=== PATIENT | female | born 1970 | race Caucasian/White ===

== ENCOUNTER → 2016-03-26 | Outpatient (CLI) | payer OTHER ==
[~2016-03-26] MED LIST: /LOR25TA PO; /PREG50CA PO; ASPI81TA85 PO; CETI5TAB2 PO; FLAX1000 PO; HYDR12.55 PO; IBUPPOW25 PO; LISI10TA4 PO; MULTTAB24 PO; NAPR500T2 PO; SOMA350T PO; TOPA25TA10 PO; VITA10006 PO; [UNRECOGNIZED DRUG - CODE] PO; primrose PO
--- NOTE | 2016-04-01 01:51 | ECWPNPC ---
PATIENT NAME: DAFNE LOVE : 1970 GENDER: FEMALE VISIT DATE: 03/26/2016 DISCHARGE DATE: 03/26/16 1221 VISIT LOCKED DATE TIME: PHYSICIAN: MILENA GREWAL RESOURCE: MILENA GREWAL REASON FOR APPOINTMENT 1. WC, BACK PAIN HISTORY OF PRESENT ILLNESS HISTORY OF PRESENT ILLNESS: PAIN THE PATIENT DESCRIBES THE PAIN... 45 YEAR OLD FEMALE PATIENT WITH HISTORY OF CHRONIC BACK PAIN. PATIENT DESCRIBES THE PAIN ACHING, BURNING, AND SHOOTING WITH A PAIN SCORE OF 3-4 AT THIS TIME. PATIENT WAS HURT IN A WORK RELATED INJURY IN 2008 WHEN SHE WAS MOVING GARBAGE WHILE WORKING AT [employer] AND HURT HER BACK. PATIENT HAS HAD A BACK SURGERY AND HAS TRIED ICE, HEAT, AND PHYSICAL THERAPY AND NONE HAVE GIVEN HER [facility] RELIEF. PATIENT IS CURRENTLY USING HYDROCODONE WHICH SHE STATES KEEPS HER MOBILE AND FUNCTIONAL AND AIDS IN PAIN RELIEF. PATIENT DENIES UNEXPLAINABLE WEIGHT LOSS, FEVER, CHILLS, NEW CHANGES ON HER URINARY OR BOWEL CONTROL. FALL RISK SCREENING: SCREENING :NO FALLS IN THE PAST YEAR CURRENT MEDICATIONS TAKING HYDROCHLOROTHIAZIDE 12.5 MG CAPSULE 1 CAPSULE ORALLY ONCE A DAY TAKING LISINOPRIL 20 MG TABLET 1 TABLET ORALLY ONCE A DAY TAKING SERTRALINE HCL 25 MG TABLET 1 TABLET ORALLY ONCE A DAY TAKING STOOL SOFTENER 100 MG CAPSULE 1 CAPSULE NEEDED ORALLY ONCE A DAY TAKING NORCO 10-325 MG TABLET 1 ORALLY Q4H PRN MDD6 NOT-TAKING NAPROXEN 500 MG TABLET 1 TABLET NEEDED ORALLY EVERY 12 HRS NOT-TAKING ASPIR-81 81 MG TABLET DELAYED RELEASE 1 TABLET ORALLY ONCE A DAY MEDICATION LIST REVIEWED AND RECONCILED WITH THE PATIENT PAST MEDICAL HISTORY HTN ANXIETY ALLERGIES LYRICA: INCREASED ANXIETY: ALLERGY SURGICAL HISTORY CSECTION 1988 PILONDEAL CYST 1988 SCAR TISSUE REMOVAL / FROM CSECTION AREA 1995 CRANIOTOMY 2010 BACK SURGURY 2010 FAMILY HISTORY NO FAMILY HISTORY DOCUMENTED. SOCIAL HISTORY GENERAL: TOBACCO USE ARE YOU A:NONSMOKER LEARNING BARRIERS / SPECIAL NEEDS ORIENTED TO PLAN OF CARE: PATIENT, PAIN MANAGEMENT PATIENT, ORIENTED TO PLAN OF CARE: PATIENT, PAIN MANAGEMENT PATIENT. NEW PATIENT PAIN DIARY TODAY'S VISITNOTES FROM 0-10, WHAT LEVEL IS YOUR PAIN TODAY?0 PAIN CLINIC PFS, CLERGY, PUBLIC HEALTH REFERRALS PFS REFERRAL NEEDED?NO CLERGY REFERRAL NEEDED?NO PUBLIC HEALTH REFERRAL NEEDED?NO WAS THE PROVIDER NOTIFIED OF ANY PERTINENT INFO?NO PFS REFERRAL NEEDED?NO CLERGY REFERRAL NEEDED?NO PUBLIC HEALTH REFERRAL NEEDED?NO WAS THE PROVIDER NOTIFIED OF ANY PERTINENT INFO?NO HOSPITALIZATION/MAJOR DIAGNOSTIC PROCEDURE SEE ABOVE REVIEW OF SYSTEMS CONSTITUTIONAL: ANY CHANGE IN YOUR MEDICAL CONDITION? NO . CHILLS NO . FEVER NO . INFECTION: DO YOU HAVE NEW INFECTIONS? NO . DO YOU HAVE HISTORY OF MRSA? NO . MUSCULOSKELETAL: ANY NEW PATTERNS OF PAIN OR NUMBNESS? NO . GASTROENTEROLOGY: ANY NEW CHANGE IN BOWEL CONTROL? NO . GENITOURINARY: ANY NEW CHANGE IN BLADDER CONTROL? NO . IS THERE A CHANCE YOU COULD BE ? NO . HEMATOLOGY/LYMPH: DO YOU TAKE ANY BLOOD THINNERS? (FOR EXAMPLE- COUMADIN, PLAVIX, AGGRENOX, PLATEL, PRADAXA, OR XARELTO) NO . WHEN WAS YOUR LAST DOSE? DATE: TIME: . NEUROLOGY: HAVE YOU FALLEN IN THE PAST 6 MONTHS? NO . ANY NEW EXTREMITY NUMBNESS OR WEAKNESS? NO . CARDIOLOGY: DO YOU HAVE A PACEMAKER OR DEFIBRILLATOR? NO . RESPIRATORY: HAVE YOU BEEN SICK IN THE PAST WEEK? YES COLD X 2WEEKS . FEVER NO . FLU LIKE SYMPTOMS? NO . COUGH YES, PRODUCTIVE RAISING CLEAR MUCUS . INTEGUMENTARY: DO YOU HAVE ANY RASHES OR OPEN SORES? NO . ALLERGIC/IMMUNO: ARE YOU ALLERGIC TO SHELLFISH OR IV DYE? NO . ANY NEW ALLERGIES? NO . PSYCHIATRIC: DO YOU HAVE THOUGHTS OF HURTING YOURSELF OR SOMEONE ELSE? NO . ARE YOU ABUSED, NEGLECTED, OR IN AN UNSAFE ENVIRONMENT? NO . ENDOCRINOLOGY: ARE YOU DIABETIC? NO . OTHER: DO YOU NEED ANY PRESCRIPTIONS? YES, NORCO . IF YES, PLEASE LIST: ____ . ANY NEW PROBLEMS WITH YOUR MEDICATIONS? NO . WHEN DID YOU LAST EAT? ____ . WHEN DID YOU LAST DRINK? ____ . WHAT DID YOU LAST DRINK? ____ . NAME OF PERSON DRIVING YOU HOME? ____ . DO YOU HAVE ANY OTHER QUESTIONS OR CONCERNS NO . REVIEWED BY: PROVIDER: MILENA GREWAL MD . VITAL SIGNS WT 168 LBS, HT 65 IN, BMI 27.95 INDEX, BP 150/83 MM HG, HR 98 /MIN, RR 16 /MIN, TEMP 98.4 F, OXYGEN SAT % 97, NA INITIALS TL 1113, REVIEWED BY: AD. EXAMINATION : PATIENT IS ALERT O X 3 AND COOPERATIVE. PATIENT LIMPING FROM LEFT LEFT. MRS. FONTANA IS ABLE TO FLEX HER BACK 80 DEGREES AND EXTEND IT 5 DEGREES WITH DISCOMFORT. TENDERNESS IN THE LOWER BACK AND PARASPINAL MUSCLE GROUP. MRI DONE ON 08/24/14 SHOWS A DISC HERNIATION AT L3-L4, POST LAMICEOMTY CHANGES AT L4-L5 AND L5-S1. ASSESSMENTS POST LAMINECTOMY SYNDROME - M96.1 (PRIMARY) CHRONIC PRESCRIPTION OPIATE USE - Z79.891 INTERVERTEBRAL DISC DISORDERS WITH RADICULOPATHY, LUMBAR REGION - M51.16 TREATMENT POST LAMINECTOMY SYNDROME REFILL NORCO TABLET, 10-325 MG, 1, ORALLY, Q4H PRN MDD6, 30 DAY(S), 180, REFILLS 0 NOTES: WE DISCUSSED SEVERAL ISSUES WITH MRS. LOVE'S PAIN MANAGEMENT CASE. AT THIS TIME THE PATIENT WILL CONTINUE WITH THE SAME MEDICATION REGIME BEFORE. PATIENT STATES THAT THE MEDICATIONS KEEP HER MOBILE AND FUNCTIONAL AND DECREASE HER CHRONIC PAIN. PATIENT DENIES ABUSE OF ANY MEDICATION , DENIES USE OF ILLEGAL SUBSTANCES, AND STATES SHE IS ONLY USING THE MEDICATION FOR PAIN MANAGEMENT. URINE TOXICOLOGY REPORT DONE ON 12/11/15 SHOWS CONSISTENT RESULTS WITH THE PATIENTS MEDICATION LIST. MRS. LOVE REPORTS THAT INJECTIONS DO NOT AID IN PAIN RELIEF AT THIS TIME. PATIENT WILL RETURN TO THE CLINIC IN 3 WEEKS TO FURTHER DISCUSS HER CASE. INSTRUCTIONS WERE GIVEN, QUESTIONS WERE ANSWERED, PATIENT REPORTS UNDERSTANDING AND AGREES WITH THE PLAN. I, NORMA FISHER, DOCUMENTED THE ABOVE INFORMATION ACTING A SCRIBE FOR DR. GREWAL. I HAVE REVIEWED THE ABOVE DOCUMENT, WRITTEN BY NORMA HUFF AND I VERIFY THAT IT IS ACCURATE. OTHERS REFILL STOOL SOFTENER CAPSULE, 100 MG, 1 CAPSULE NEEDED, ORALLY, ONCE A DAY FOR CONSTIPATION, 30 DAY(S), 30, REFILLS 2 START IBUPROFEN TABLET, 800 MG, 1 TABLET NEEDED FOR PAIN, ORALLY WITH FOOD, THREE TIMES A DAY MDD3, 30 DAY(S), 70, REFILLS 2 PROCEDURES PN WORKMANS' COMP OPINION IN YOUR OPINION, WAS THE INCIDENT THAT THE PATIENT DESCRIBED THE COMPETENT MEDICAL CAUSE OF THIS INJURY/ILLNESS? YES ARE THE PATIENT'S COMPLAINTS CONSISTENT WITH HIS/HER HISTORY OF THE INJURY/ILLNESS? YES IS THE PATIENT'S HISTORY OF THE INJURY/ILLNESS CONSISTENT WITH YOUR OBJECTIVE FINDING? YES WHAT IS THE PERCENTAGE OF TEMPORARY IMPAIRMENT? MODERATE TO MARKED = 66.7% IS THE PATIENT WORKING? NO DOCTOR ON SITE: MILENA SPEARS MD PREVENTIVE MEDICINE PAIN CLINIC TEACHING: MEDICATIONS IBUPROFAN INFORMATION SHEETS PRINTED AND GIVEN TO PATIENT. ALSO SIJ INFORMATION SHEET AND TRANSFORAMINAL LUMBAR EPIDURAL INFORMATION SHEETS GIVEN TO PATIENT. PROCEDURE CODES FA211 ESTABILISHED PATIENT [facility] FACILITY CHARGE G8427 DOC MEDS VERIFIED W/PT OR RE G8730 PAIN ASSESS POS TOOL F/U PLAN DOC FOLLOW UP 3 WEEKS ELECTRONICALLY SIGNED BY MILENA GREWAL MD ON 03/30/2016 AT 07:33 PM EST DISCLAIMER : THIS IS A VISIT SUMMARY EXTRACTED FROM THE [employer] CHART. IT IS NOT A COPY OF THE [email or web address] PROGRESS NOTE. NELSON
== END ==
LOC: M PAIN 11:00
PROVIDERS: ATTEND Anesthesiology
DX: Z09 Encounter for follow-up examination after completed treatment for conditions other than malignant neoplasm (principal); G89.29 Other chronic pain; M96.1 Postlaminectomy syndrome, not elsewhere classified; M51.16 Intervertebral disc disorders with radiculopathy, lumbar region; I10 Essential (primary) hypertension; F41.9 Anxiety disorder, unspecified; Z88.8 Allergy status to other drugs, medicaments and biological substances; Z79.891 Long term (current) use of opiate analgesic; Z79.899 Other long term (current) drug therapy

== ENCOUNTER → 2016-05-05 | Outpatient (CLI) | payer OTHER ==
--- NOTE | 2016-05-06 00:02 | ECWPNPC ---
PATIENT NAME: DAFNE LOVE : 1970 GENDER: FEMALE VISIT DATE: 05/05/2016 DISCHARGE DATE: 05/05/16 1441 VISIT LOCKED DATE TIME: PHYSICIAN: MILENA GREWAL RESOURCE: MILENA GREWAL REASON FOR APPOINTMENT 1. BACK W/C HISTORY OF PRESENT ILLNESS HISTORY OF PRESENT ILLNESS: PAIN THE PATIENT DESCRIBES THE PAIN... FALL RISK SCREENING: SCREENING :NO FALLS IN THE PAST YEAR GENERAL: 45 YEAR OLD FEMALE PATIENT WITH HISTORY OF CHRONIC BACK PAIN. PATIENT DESCRIBES THE PAIN . PATIENT WAS HURT IN A WORK RELATED INJURY IN 2008 WHEN SHE WAS MOVING GARBAGE WHILE WORKING AT [email or web address] AND HURT HER BACK. PATIENT HAD BACK SURGERY IN MAY OF 2009. PATIENT REPORTS THAT HER LEFT LEG HURTS THE MOST TODAY DUE TO RADIATING PAIN FROM HER BACK. PATIENT REPORTS SHE HAS HAD PHYSICAL THERAPY IN THE PAST, AND DID NOT HELP AT ALL AND SHE TRY'S TO KEEP HER SELF ACTIVE AND FUNCTIONAL AT HOME IF THE PAIN IS NOT TOO BAD. PATIENT STATES THAT SHE HAS TO BE CAREFUL WHEN SHE IS ACTIVE THE PAIN CAN BECOME SEVERE IF SHE DOES TOO MUCH. PATIENT REPORTS THAT SHE HAS DIFFICULTIES FALLING ASLEEP AND STAYING ASLEEP. PATIENT REPORTS THAT SHE IS ON THE FENCE ABOUT DOING INJECTIONS. PATIENT REPORTS THAT IBUPROFEN WORKS OKAY. PATIENT DENIES UNEXPLAINABLE WEIGHT LOSS, FEVER, CHILLS, NEW CHANGES ON HIS/HER URINARY OR BOWEL CONTROL. CURRENT MEDICATIONS TAKING HYDROCHLOROTHIAZIDE 12.5 MG CAPSULE 1 CAPSULE ORALLY ONCE A DAY TAKING LISINOPRIL 20 MG TABLET 1 TABLET ORALLY ONCE A DAY TAKING SERTRALINE HCL 25 MG TABLET 1 TABLET ORALLY ONCE A DAY TAKING STOOL SOFTENER 100 MG CAPSULE 1 CAPSULE NEEDED ORALLY ONCE A DAY FOR CONSTIPATION TAKING IBUPROFEN 800 MG TABLET 1 TABLET NEEDED FOR PAIN ORALLY WITH FOOD THREE TIMES A DAY MDD3 TAKING NORCO 10-325 MG TABLET 1 ORALLY Q4H PRN MDD6 NOT-TAKING NAPROXEN 500 MG TABLET 1 TABLET NEEDED ORALLY EVERY 12 HRS NOT-TAKING ASPIR-81 81 MG TABLET DELAYED RELEASE 1 TABLET ORALLY ONCE A DAY MEDICATION LIST REVIEWED AND RECONCILED WITH THE PATIENT PAST MEDICAL HISTORY HTN ANXIETY ALLERGIES LYRICA: INCREASED ANXIETY: ALLERGY SURGICAL HISTORY CSECTION 1988 PILONDEAL CYST 1988 SCAR TISSUE REMOVAL / FROM CSECTION AREA 1995 CRANIOTOMY 2010 BACK SURGURY 2010 FAMILY HISTORY NO FAMILY HISTORY DOCUMENTED. SOCIAL HISTORY GENERAL: TOBACCO USE ARE YOU A:NONSMOKER LEARNING BARRIERS / SPECIAL NEEDS ORIENTED TO PLAN OF CARE: PATIENT, PAIN MANAGEMENT PATIENT, ORIENTED TO PLAN OF CARE: PATIENT, PAIN MANAGEMENT PATIENT. NEW PATIENT PAIN DIARY TODAY'S VISITNOTES FROM 0-10, WHAT LEVEL IS YOUR PAIN TODAY?0 PAIN CLINIC PFS, CLERGY, PUBLIC HEALTH REFERRALS PFS REFERRAL NEEDED?NO CLERGY REFERRAL NEEDED?NO PUBLIC HEALTH REFERRAL NEEDED?NO WAS THE PROVIDER NOTIFIED OF ANY PERTINENT INFO?NO PFS REFERRAL NEEDED?NO CLERGY REFERRAL NEEDED?NO PUBLIC HEALTH REFERRAL NEEDED?NO WAS THE PROVIDER NOTIFIED OF ANY PERTINENT INFO?NO HOSPITALIZATION/MAJOR DIAGNOSTIC PROCEDURE SEE ABOVE REVIEW OF SYSTEMS CONSTITUTIONAL: ANY CHANGE IN YOUR MEDICAL CONDITION? YES BEEN BATTLING RESPIRATORY/ GOING TO SEE PRIMARY TOMORROW. ALSO HAS INCREASED SWELLING IN FEET AND ANKLES . CHILLS NO . FEVER NO . INFECTION: DO YOU HAVE NEW INFECTIONS? NO . DO YOU HAVE HISTORY OF MRSA? NO . MUSCULOSKELETAL: ANY NEW PATTERNS OF PAIN OR NUMBNESS? NO . GASTROENTEROLOGY: ANY NEW CHANGE IN BOWEL CONTROL? NO . GENITOURINARY: ANY NEW CHANGE IN BLADDER CONTROL? NO . IS THERE A CHANCE YOU COULD BE ? NO . HEMATOLOGY/LYMPH: DO YOU TAKE ANY BLOOD THINNERS? (FOR EXAMPLE- COUMADIN, PLAVIX, AGGRENOX, PLATEL, PRADAXA, OR XARELTO) NO . WHEN WAS YOUR LAST DOSE? DATE: TIME: . NEUROLOGY: HAVE YOU FALLEN IN THE PAST 6 MONTHS? NO . ANY NEW EXTREMITY NUMBNESS OR WEAKNESS? NO . CARDIOLOGY: DO YOU HAVE A PACEMAKER OR DEFIBRILLATOR? NO . RESPIRATORY: HAVE YOU BEEN SICK IN THE PAST WEEK? NO . FEVER NO . FLU LIKE SYMPTOMS? NO . COUGH NO . INTEGUMENTARY: DO YOU HAVE ANY RASHES OR OPEN SORES? NO . ALLERGIC/IMMUNO: ARE YOU ALLERGIC TO SHELLFISH OR IV DYE? NO . ANY NEW ALLERGIES? NO . PSYCHIATRIC: DO YOU HAVE THOUGHTS OF HURTING YOURSELF OR SOMEONE ELSE? NO . ARE YOU ABUSED, NEGLECTED, OR IN AN UNSAFE ENVIRONMENT? NO . ENDOCRINOLOGY: ARE YOU DIABETIC? NO . OTHER: DO YOU NEED ANY PRESCRIPTIONS? NO . IF YES, PLEASE LIST: ____ . ANY NEW PROBLEMS WITH YOUR MEDICATIONS? NO . WHEN DID YOU LAST EAT? ____ . WHEN DID YOU LAST DRINK? ____ . WHAT DID YOU LAST DRINK? ____ . NAME OF PERSON DRIVING YOU HOME? ____ . DO YOU HAVE ANY OTHER QUESTIONS OR CONCERNS NO . REVIEWED BY: PROVIDER: MILENA GREWAL MD . VITAL SIGNS WT 179.2 LBS, HT 65 IN, BMI 29.82 INDEX, BP 146/84 MM HG, HR 101 /MIN, RR 18 /MIN, TEMP 100.4 F, OXYGEN SAT % 99%, REVIEWED BY: KG. EXAMINATION GENERAL: PATIENT IS ALERT O X 3 AND COOPERATIVE. PATIENT AMBULATES WITH A LIMP ON THE LEFT LEG. PATIENT'S LEFT LEG IS WEAKER AT FLEXION AND EXTENSION. PATIENT IS ABLE TO FLEX HER BACK TO 45 DEGREES AND EXTEND TO 10 DEGREES. THERE IS TENDERNESS IN THE SACROILIAC AREA. MRI DONE ON 08/24/14 SHOWS A DISC HERNIATION AT L3-L4, POST LAMINECTOMY CHANGES AT L4-L5 AND L5-S1. ASSESSMENTS SACROILIITIS, NOT ELSEWHERE CLASSIFIED - M46.1 (PRIMARY) POST LAMINECTOMY SYNDROME - M96.1 TREATMENT SACROILIITIS, NOT ELSEWHERE CLASSIFIED NOTES: WE DISCUSSED SEVERAL ISSUES WITH MRS. LOVE'S PAIN MANAGEMENT CASE. AT THIS TIME THE PATIENT WILL RECEIVE A REFILL OF NORCO TODAY, PATIENT IS TAKING THIS MEDICATION FOR SOMATIC PAIN. PATIENT BROUGHT HER MEDICATION BOTTLES TO TODAY'S VISIT. REVIEWED WITH PATIENT THE POTENTIAL RISK OF INCREASED SEDATION, RESPIRATORY SUPPRESSION AND WITH THE COMBINATION OF BENZODIAZEPINE, ALCOHOL AND OPIOID MEDICATIONS. PATIENT STATES SHE UNDERSTANDS THIS RISK AND WISHES TO CONTINUE WITH THERAPY. ADVISED PATIENT TO ALWAYS TAKE IBUPROFEN WITH FOOD. DISCUSSED THE RISKS AND BENEFITS OF USE OF NSAID'S SUCH IBUPROFEN, CELEBREX, AND DICLOFENAC WERE REVIEWED WITH THE PATIENT INCLUDING THE RISK OF GI BLEED, AND INCREASED RISK OF HEART ATTACK AND STROKE. AFTER REVIEWING THE MRI AND EXAMINING THE PATIENT, SHE IS A GOOD CANDIDATE FOR A SIJ OR A TRANSFORAMINAL, INFORMED THE PATIENT THAT THE SIJ IS THE LEAST EVASIVE PROCEDURE. OPTIONS FOR EPIDURAL INJECTIONS WERE DISCUSSED WITH THE PATIENT. FDA CONCERNS AND WARNING WERE REVIEWED INCLUDING THE RISK OF BLEEDING, RISK OF INFECTION, RISK OF INCREASED PAIN OR NEURALGIA, AND RISK OF PARALYSIS. PATIENT'S QUESTIONS WERE ANSWERED AND AT THIS TIME THE PATIENT WOULD LIKE TO THINK OVER WHICH PROCEDURE SHE MAY LIKE TO DO. PATIENT TO FOLLOW UP WITH ME IN 6 WEEKS. INSTRUCTIONS WERE GIVEN, QUESTIONS WERE ANSWERED, PATIENT REPORTS UNDERSTANDING AND AGREES WITH THE PLAN. I, SANG FARNSWORTH, DOCUMENTED THE ABOVE INFORMATION ACTING A SCRIBE FOR DR. GREWAL. I HAVE REVIEWED THE ABOVE DOCUMENT, WRITTEN BY SANG FARNSWORTH SCRIBE AND I VERIFY THAT IT IS ACCURATE. POST LAMINECTOMY SYNDROME REFILL NORCO TABLET, 10-325 MG, 1, ORALLY, Q4H PRN MDD6, 30 DAY(S), 170, REFILLS 0 PROCEDURES PN WORKMANS' COMP OPINION IN YOUR OPINION, WAS THE INCIDENT THAT THE PATIENT DESCRIBED THE COMPETENT MEDICAL CAUSE OF THIS INJURY/ILLNESS? YES ARE THE PATIENT'S COMPLAINTS CONSISTENT WITH HIS/HER HISTORY OF THE INJURY/ILLNESS? YES IS THE PATIENT'S HISTORY OF THE INJURY/ILLNESS CONSISTENT WITH YOUR OBJECTIVE FINDING? YES WHAT IS THE PERCENTAGE OF TEMPORARY IMPAIRMENT? MODERATE TO MARKED = 66.7% IS THE PATIENT WORKING? NO DOCTOR ON SITE: MILENA SPEARS MD PROCEDURE CODES FA211 ESTABILISHED PATIENT [facility] FACILITY CHARGE G8730 PAIN ASSESS POS TOOL F/U PLAN DOC G8427 DOC MEDS VERIFIED W/PT OR RE DISPOSITION & COMMUNICATION FOLLOW UP 6 WEEKS ELECTRONICALLY SIGNED BY MILENA GREWAL MD ON 05/05/2016 AT 06:49 PM EDT DISCLAIMER : THIS IS A VISIT SUMMARY EXTRACTED FROM THE [employer] CHART. IT IS NOT A COPY OF THE [employer] PROGRESS NOTE. NELSON
== END | disposition home or self-care (01) ==
LOC: M PAIN 13:20
PROVIDERS: ATTEND Anesthesiology
DX: Z09 Encounter for follow-up examination after completed treatment for conditions other than malignant neoplasm (principal); G89.29 Other chronic pain; M46.1 Sacroiliitis, not elsewhere classified; M96.1 Postlaminectomy syndrome, not elsewhere classified; I10 Essential (primary) hypertension; F41.9 Anxiety disorder, unspecified; Z79.899 Other long term (current) drug therapy; Z88.8 Allergy status to other drugs, medicaments and biological substances

== ENCOUNTER → 2016-07-30 | Outpatient (CLI) | payer OTHER ==
--- NOTE | 2016-08-08 23:55 | ECWPNPC ---
PATIENT NAME: DAFNE LOVE : 1970 GENDER: FEMALE VISIT DATE: 07/30/2016 DISCHARGE DATE: 07/30/16 1504 VISIT LOCKED DATE TIME: PHYSICIAN: MILENA GREWAL RESOURCE: MILENA GREWAL REASON FOR APPOINTMENT 1. WC, BACK HISTORY OF PRESENT ILLNESS HISTORY OF PRESENT ILLNESS: PAIN THE PATIENT DESCRIBES THE PAIN... 46 YEAR OLD FEMALE PATIENT WITH HISTORY OF CHRONIC BACK PAIN. PATIENT DESCRIBES THE PAIN ACHING WITH A PAIN SCORE OF 4/10 ON TODAY'S VISIT. PATIENT WAS INJURED IN A WORK RELATED INJURY IN 08/29/2008 WHEN SHE WAS MOVING GARBAGE WHILE WORKING AT [employer] IN THE [employer] [address] INJURING HER BACK. PATIENT HAD BACK SURGERY IN MAY OF 2009 WITHOUT ANY IMPROVEMENT IN PAIN RELIEF. PATIENT REPORTS SHE HAS HAD PHYSICAL THERAPY IN THE PAST, AND DID NOT HELP AT ALL AND SHE TRY'S TO KEEP HER SELF ACTIVE AND FUNCTIONAL AT HOME IF THE PAIN IS NOT TOO BAD. PATIENT STATES THAT SHE HAS TO BE CAREFUL WHEN SHE IS ACTIVE THE PAIN CAN BECOME SEVERE IF SHE DOES TOO MUCH. PATIENT REPORTS THAT SHE HAS DIFFICULTIES FALLING ASLEEP AND STAYING ASLEEP. PATIENT REPORTS THAT SHE IS OPEN TO TRYING INJECTIONS TO TRY TO HELP WITH THE PAIN. PATIENT DENIES UNEXPLAINABLE WEIGHT LOSS, FEVER, CHILLS, NEW CHANGES ON HER URINARY OR BOWEL CONTROL. FALL RISK SCREENING: SCREENING :NO FALLS IN THE PAST YEAR CURRENT MEDICATIONS TAKING HYDROCHLOROTHIAZIDE 12.5 MG CAPSULE 1 CAPSULE ORALLY ONCE A DAY TAKING LISINOPRIL 20 MG TABLET 1 TABLET ORALLY ONCE A DAY TAKING SERTRALINE HCL 25 MG TABLET 1 TABLET ORALLY ONCE A DAY TAKING IBUPROFEN 800 MG TABLET 1 TABLET NEEDED FOR PAIN ORALLY WITH FOOD THREE TIMES A DAY MDD3 TAKING NORCO 10-325 MG TABLET 1 ORALLY Q4H PRN MDD6 TAKING STOOL SOFTENER 100 MG CAPSULE 1 CAPSULE NEEDED ORALLY ONCE A DAY FOR CONSTIPATION TAKING MULTI FOR HER - TABLET ORALLY DAILY NOT-TAKING NAPROXEN 500 MG TABLET 1 TABLET NEEDED ORALLY EVERY 12 HRS NOT-TAKING ASPIR-81 81 MG TABLET DELAYED RELEASE 1 TABLET ORALLY ONCE A DAY MEDICATION LIST REVIEWED AND RECONCILED WITH THE PATIENT PAST MEDICAL HISTORY HTN ANXIETY FLUID RETENTION TO LEGS AND ANKLES ALLERGIES LYRICA: INCREASED ANXIETY: ALLERGY SURGICAL HISTORY CSECTION 1988 PILONDEAL CYST 1988 SCAR TISSUE REMOVAL / FROM CSECTION AREA 1995 CRANIOTOMY 2010 BACK SURGURY 2010 FAMILY HISTORY NO FAMILY HISTORY DOCUMENTED. SOCIAL HISTORY GENERAL: TOBACCO USE ARE YOU A:NONSMOKER LEARNING BARRIERS / SPECIAL NEEDS ORIENTED TO PLAN OF CARE: PATIENT, PAIN MANAGEMENT PATIENT, ORIENTED TO PLAN OF CARE: PATIENT, PAIN MANAGEMENT PATIENT. NEW PATIENT PAIN DIARY TODAY'S VISITNOTES FROM 0-10, WHAT LEVEL IS YOUR PAIN TODAY?0 PAIN CLINIC PFS, CLERGY, PUBLIC HEALTH REFERRALS PFS REFERRAL NEEDED?NO CLERGY REFERRAL NEEDED?NO PUBLIC HEALTH REFERRAL NEEDED?NO WAS THE PROVIDER NOTIFIED OF ANY PERTINENT INFO?NO PFS REFERRAL NEEDED?NO CLERGY REFERRAL NEEDED?NO PUBLIC HEALTH REFERRAL NEEDED?NO WAS THE PROVIDER NOTIFIED OF ANY PERTINENT INFO?NO HOSPITALIZATION/MAJOR DIAGNOSTIC PROCEDURE SEE ABOVE REVIEW OF SYSTEMS REVIEWED BY: PROVIDER: MILENA GREWAL MD . CONSTITUTIONAL: ANY CHANGE IN YOUR MEDICAL CONDITION? NO . CHILLS NO . FEVER NO . INFECTION: DO YOU HAVE NEW INFECTIONS? NO . DO YOU HAVE HISTORY OF MRSA? NO . MUSCULOSKELETAL: ANY NEW PATTERNS OF PAIN OR NUMBNESS? NO . GASTROENTEROLOGY: ANY NEW CHANGE IN BOWEL CONTROL? NO . GENITOURINARY: ANY NEW CHANGE IN BLADDER CONTROL? NO . IS THERE A CHANCE YOU COULD BE ? NO . HEMATOLOGY/LYMPH: DO YOU TAKE ANY BLOOD THINNERS? (FOR EXAMPLE- COUMADIN, PLAVIX, AGGRENOX, PLATEL, PRADAXA, OR XARELTO) NO . WHEN WAS YOUR LAST DOSE? DATE: TIME: . NEUROLOGY: HAVE YOU FALLEN IN THE PAST 6 MONTHS? NO . ANY NEW EXTREMITY NUMBNESS OR WEAKNESS? NO . CARDIOLOGY: DO YOU HAVE A PACEMAKER OR DEFIBRILLATOR? NO . RESPIRATORY: HAVE YOU BEEN SICK IN THE PAST WEEK? YES, CURRENT SINUS INFECTION // JUST GOT OVER ONE 3 WEEKS AGO . FEVER NO . FLU LIKE SYMPTOMS? NO . COUGH NO . INTEGUMENTARY: DO YOU HAVE ANY RASHES OR OPEN SORES? NO . ALLERGIC/IMMUNO: ARE YOU ALLERGIC TO SHELLFISH OR IV DYE? NO . ANY NEW ALLERGIES? NO . PSYCHIATRIC: DO YOU HAVE THOUGHTS OF HURTING YOURSELF OR SOMEONE ELSE? NO . ARE YOU ABUSED, NEGLECTED, OR IN AN UNSAFE ENVIRONMENT? NO . ENDOCRINOLOGY: ARE YOU DIABETIC? NO . OTHER: DO YOU NEED ANY PRESCRIPTIONS? NO . IF YES, PLEASE LIST: ____ . ANY NEW PROBLEMS WITH YOUR MEDICATIONS? NO . WHEN DID YOU LAST EAT? ____ . WHEN DID YOU LAST DRINK? ____ . WHAT DID YOU LAST DRINK? ____ . NAME OF PERSON DRIVING YOU HOME? ____ . DO YOU HAVE ANY OTHER QUESTIONS OR CONCERNS NO . VITAL SIGNS WT 178.0 LBS, HT 65 IN, BMI 29.62 INDEX, BP 144/71 MM HG, HR 86 /MIN, RR 16 /MIN, TEMP 99.3 F, OXYGEN SAT % 99%, NA INITIALS TL 1326. EXAMINATION : PATIENT IS ALERT O X 3 AND COOPERATIVE. PATIENT AMBULATES WITH A LIMP ON THE LEFT LEG. PATIENT LEFT LEG IS WEAKER AT FLEXION AND EXTENSION. PATIENT IS ABLE TO FLEX HER BACK TO 45 DEGREES AND EXTEND TO 5 DEGREES. PATIENT HAD DIFFICULTIES LAYING ON HER BACK ON THE BED. FABERE TEXT POSITIVE ON THE LEFT LEG. THERE IS TENDERNESS IN THE SACROILIAC AREA. ASSESSMENTS SACROILIITIS, NOT ELSEWHERE CLASSIFIED - M46.1 (PRIMARY) POST LAMINECTOMY SYNDROME - M96.1 INTERVERTEBRAL DISC DISORDERS WITH RADICULOPATHY, LUMBAR REGION - M51.16 INTERVERTEBRAL DISC DISORDERS WITH RADICULOPATHY, LUMBOSACRAL REGION - M51.17 TREATMENT SACROILIITIS, NOT ELSEWHERE CLASSIFIED NOTES: WE DISCUSSED SEVERAL ISSUES WITH MS. HENSLEY'S PAIN MANAGEMENT CASE. AT THIS TIME THE PATIENT WILL CONTINUE ON THE SAME MEDICATION REGIMEN BEFORE. PATIENT IS TAKING NORCO AND IBUPROFEN FOR THE SOMATIC PAIN. PATIENT BROUGHT HER MEDICATIONS IN THE ORIGINAL BOTTLES DIRECTED FOR EVERY FOLLOW UP VISIT. AFTER EXAMINING THE PATIENT SHE IS A GOOD CANDIDATE FOR A LEFT SACROILIAC INJECTION. WE DISCUSSED THE RISK, BENEFITS, AND ALTERNATIVES AND THE PATIENT WOULD LIKE TO PROCEED. PATIENT WILL BE BOOKED PENDING APPROVAL. PATIENT WILL FOLLOW UP WITH ME IN 2 MONTHS. , INSTRUCTIONS WERE GIVEN, QUESTIONS WERE ANSWERED, PATIENT REPORTS UNDERSTANDING AND AGREES WITH THE PLAN. I, SANG FARNSWORTH, DOCUMENTED THE ABOVE INFORMATION ACTING A SCRIBE FOR DR. GREWAL. I HAVE REVIEWED THE ABOVE DOCUMENT, WRITTEN BY SANG FARNSWORTH SCRIBGala AND I VERIFY THAT IT IS ACCURATE. POST LAMINECTOMY SYNDROME REFILL NORCO TABLET, 10-325 MG, 1, ORALLY, Q4H PRN MDD6, 30 DAY(S), 170, REFILLS 0 OTHERS REFILL IBUPROFEN TABLET, 800 MG, 1 TABLET NEEDED FOR PAIN, ORALLY WITH FOOD, THREE TIMES A DAY MDD3, 30 DAY(S), 70, REFILLS 2 REFILL STOOL SOFTENER CAPSULE, 100 MG, 1 CAPSULE NEEDED, ORALLY, BID NEEDED FOR CONSTIPATION, 30 DAY(S), 60, REFILLS 2 PROCEDURES PN WORKMANS' COMP OPINION IN YOUR OPINION, WAS THE INCIDENT THAT THE PATIENT DESCRIBED THE COMPETENT MEDICAL CAUSE OF THIS INJURY/ILLNESS? YES ARE THE PATIENT'S COMPLAINTS CONSISTENT WITH HIS/HER HISTORY OF THE INJURY/ILLNESS? YES IS THE PATIENT'S HISTORY OF THE INJURY/ILLNESS CONSISTENT WITH YOUR OBJECTIVE FINDING? YES WHAT IS THE PERCENTAGE OF TEMPORARY IMPAIRMENT? MODERATE TO MARKED = 66.7% IS THE PATIENT WORKING? NO DOCTOR ON SITE: MILENA SPEARS MD PROCEDURE CODES G8730 PAIN ASSESS POS TOOL F/U PLAN DOC G8427 DOC MEDS VERIFIED W/PT OR RE FA211 ESTABILISHED PATIENT [facility] FACILITY CHARGE DISPOSITION & COMMUNICATION FOLLOW UP 2 MONTHS ELECTRONICALLY SIGNED BY MILENA GREWAL MD ON 08/08/2016 AT 08:17 AM EDT DISCLAIMER : THIS IS A VISIT SUMMARY EXTRACTED FROM THE [employer] CHART. IT IS NOT A COPY OF THE [employer] PROGRESS NOTE. NELSON
== END | disposition home or self-care (01) ==
LOC: M PAIN 13:20
PROVIDERS: ATTEND Anesthesiology
DX: G89.29 Other chronic pain (principal); M46.1 Sacroiliitis, not elsewhere classified; M96.1 Postlaminectomy syndrome, not elsewhere classified; M51.16 Intervertebral disc disorders with radiculopathy, lumbar region; M51.17 Intervertebral disc disorders with radiculopathy, lumbosacral region; I10 Essential (primary) hypertension; F41.9 Anxiety disorder, unspecified; Z79.899 Other long term (current) drug therapy; Z88.8 Allergy status to other drugs, medicaments and biological substances

== ENCOUNTER → 2016-12-05 | Outpatient (CLI) | payer OTHER ==
[~2016-12-05] MED LIST changes: +TOPA1TAB PO; -TOPA25TA10 PO
--- NOTE | 2016-12-19 02:53 | ECWPNPC ---
PATIENT NAME: DAFNE LOVE : 1970 GENDER: FEMALE VISIT DATE: 12/05/2016 DISCHARGE DATE: 12/05/16 1425 VISIT LOCKED DATE TIME: PHYSICIAN: MILENA GREWAL RESOURCE: MILENA GREWAL REASON FOR APPOINTMENT 1. LOW BACK PAIN W/C HISTORY OF PRESENT ILLNESS HISTORY OF PRESENT ILLNESS: PAIN THE PATIENT DESCRIBES THE PAIN... 46 YEAR OLD FEMALE PATIENT WITH HISTORY OF CHRONIC BACK PAIN. PATIENT DESCRIBES THE PAIN ACHING WITH A PAIN SCORE OF 4-5/10 AT TODAY'S VISIT. PATIENT WAS INJURED IN A WORK RELATED INJURY IN 08/29/2008 WHEN SHE WAS MOVING GARBAGE WHILE WORKING AT [employer] IN THE [employer] [address] INJURING HER BACK. PATIENT HAD BACK SURGERY IN MAY OF 2009 WITHOUT ANY IMPROVEMENT IN PAIN RELIEF. PATIENT REPORTS SHE HAS HAD PHYSICAL THERAPY IN THE PAST, AND DID NOT HELP AT ALL AND SHE TRY'S TO KEEP HER SELF ACTIVE AND FUNCTIONAL AT HOME IF THE PAIN IS NOT TOO BAD. PATIENT STATES THAT SHE HAS TO BE CAREFUL WHEN SHE IS ACTIVE THE PAIN CAN BECOME SEVERE IF SHE DOES TOO MUCH. PATIENT REPORTS THAT SHE HAS DIFFICULTIES FALLING ASLEEP AND STAYING ASLEEP. CURRENTLY THE PATIENT IS USING NORCO AND IBUPROFEN AND STATES THAT THE MEDICATION TAKES THE EDGE OFF. PATIENT REPORTS USING LYRICA, GABAPENTIN, AND CYMBALTA IN THE PAST AND HAD ADVERSE SIDE EFFECTS. PATIENT DENIES UNEXPLAINABLE WEIGHT LOSS, FEVER, CHILLS, NEW CHANGES ON HER URINARY OR BOWEL CONTROL. FALL RISK SCREENING: SCREENING :NO FALLS IN THE PAST YEAR CURRENT MEDICATIONS TAKING HYDROCHLOROTHIAZIDE 12.5 MG CAPSULE 1 CAPSULE ORALLY ONCE A DAY TAKING LISINOPRIL 20 MG TABLET 1 TABLET ORALLY ONCE A DAY TAKING SERTRALINE HCL 25 MG TABLET 1 TABLET ORALLY ONCE A DAY TAKING MULTI FOR HER - TABLET ORALLY DAILY TAKING IBUPROFEN 800 MG TABLET 1 TABLET NEEDED FOR PAIN ORALLY WITH FOOD THREE TIMES A DAY MDD3 TAKING STOOL SOFTENER 100 MG CAPSULE 1 CAPSULE NEEDED ORALLY BID NEEDED FOR CONSTIPATION TAKING NORCO 10-325 MG TABLET 1 ORALLY Q4H PRN MDD6 TAKING FLONASE 50 MCG/ACT SUSPENSION 1 SPRAY IN EACH NOSTRIL NASALLY ONCE A DAY NOT-TAKING NAPROXEN 500 MG TABLET 1 TABLET NEEDED ORALLY EVERY 12 HRS NOT-TAKING ASPIR-81 81 MG TABLET DELAYED RELEASE 1 TABLET ORALLY ONCE A DAY MEDICATION LIST REVIEWED AND RECONCILED WITH THE PATIENT PAST MEDICAL HISTORY HTN ANXIETY FLUID RETENTION TO LEGS AND ANKLES ALLERGIES LYRICA: INCREASED ANXIETY: ALLERGY REVIEW OF SYSTEMS REVIEWED BY: PROVIDER: MILENA GREWAL MD . CONSTITUTIONAL: ANY CHANGE IN YOUR MEDICAL CONDITION? NO . CHILLS NO . FEVER NO . INFECTION: DO YOU HAVE NEW INFECTIONS? NO . DO YOU HAVE HISTORY OF MRSA? NO . MUSCULOSKELETAL: ANY NEW PATTERNS OF PAIN OR NUMBNESS? NO . GASTROENTEROLOGY: ANY NEW CHANGE IN BOWEL CONTROL? NO . GENITOURINARY: ANY NEW CHANGE IN BLADDER CONTROL? NO . IS THERE A CHANCE YOU COULD BE ? NO . HEMATOLOGY/LYMPH: DO YOU TAKE ANY BLOOD THINNERS? (FOR EXAMPLE- COUMADIN, PLAVIX, AGGRENOX, PLATEL, PRADAXA, OR XARELTO) NO . WHEN WAS YOUR LAST DOSE? DATE: TIME: . NEUROLOGY: HAVE YOU FALLEN IN THE PAST 6 MONTHS? NO . ANY NEW EXTREMITY NUMBNESS OR WEAKNESS? NO . CARDIOLOGY: DO YOU HAVE A PACEMAKER OR DEFIBRILLATOR? NO . RESPIRATORY: HAVE YOU BEEN SICK IN THE PAST WEEK? NO . FEVER NO . FLU LIKE SYMPTOMS? NO . COUGH NO . INTEGUMENTARY: DO YOU HAVE ANY RASHES OR OPEN SORES? NO . ALLERGIC/IMMUNO: ARE YOU ALLERGIC TO SHELLFISH OR IV DYE? NO . ANY NEW ALLERGIES? NO . PSYCHIATRIC: DO YOU HAVE THOUGHTS OF HURTING YOURSELF OR SOMEONE ELSE? NO . ARE YOU ABUSED, NEGLECTED, OR IN AN UNSAFE ENVIRONMENT? NO . ENDOCRINOLOGY: ARE YOU DIABETIC? NO . OTHER: DO YOU NEED ANY PRESCRIPTIONS? NO . IF YES, PLEASE LIST: ____ . ANY NEW PROBLEMS WITH YOUR MEDICATIONS? NO . WHEN DID YOU LAST EAT? ____ . WHEN DID YOU LAST DRINK? ____ . WHAT DID YOU LAST DRINK? ____ . NAME OF PERSON DRIVING YOU HOME? ____ . DO YOU HAVE ANY OTHER QUESTIONS OR CONCERNS NO . VITAL SIGNS WT 174.8 LBS, HT 65 IN, BMI 29.09 INDEX, BP 134/69 MM HG, HR 89 /MIN, RR 18 /MIN, TEMP 97.8 F, OXYGEN SAT % 100%, SAFE IN ENV? (Y/N) YES, NA INITIALS SC 13:26, REVIEWED BY: ERIC. EXAMINATION : PATIENT IS ALERT O X 3 AND COOPERATIVE. PATIENT AMBULATES WITH A LIMP ON THE LEFT LEG. PATIENT LEFT LEG IS WEAKER THEN THE RIGHT AT FLEXION AND EXTENSION. PATIENT IS ABLE TO FLEX HER BACK TO 40 DEGREES AND EXTEND TO 5 DEGREES. PATIENT HAD DIFFICULTIES LAYING ON HER BACK ON THE BED. FABERE TEXT POSITIVE ON THE LEFT LEG. THERE IS TENDERNESS IN THE SACROILIAC AREA. ASSESSMENTS SACROILIITIS, NOT ELSEWHERE CLASSIFIED - M46.1 (PRIMARY) POSTLAMINECTOMY SYNDROME, NOT ELSEWHERE CLASSIFIED - M96.1 INTERVERTEBRAL DISC DISORDER WITH RADICULOPATHY OF LUMBAR REGION - M51.16 INTERVERTEBRAL DISC DISORDER WITH RADICULOPATHY OF LUMBOSACRAL REGION - M51.17 TREATMENT SACROILIITIS, NOT ELSEWHERE CLASSIFIED REFILL NORCO TABLET, 10-325 MG, 1, ORALLY, Q4H PRN MDD6, 30 DAYS, 150, REFILLS 0 START SOMA TABLET, 350 MG, 1 TABLET NEEDED, ORALLY FOR SPASMS AND PAIN POST PROCEDURE, BID, 5 DAY(S), 10 TABLET, REFILLS 0 START OXYCODONE HCL TABLET, 5 MG, 1 TABLET, ORALLY, DAILY FOR POST PROCEDUER PAIN MDD1, 5 DAY(S), 5, REFILLS 0 NOTES: WE DISCUSSED SEVERAL ISSUES WITH MS. HENSLEY'S PAIN MANAGEMENT CASE. AT THIS TIME THE PATIENT WILL CONTINUE ON THE SAME MEDICATION REGIMEN BEFORE. PATIENT IS TAKING NORCO FOR THE SOMATIC PAIN AND IBUPROFEN FOR THE INFLAMMATION. PATIENT WILL RECEIVE 150 TABLETS OF THE NORCO DUE TO THE PATIENT TRYING TO REDUCE THE MEDICATION. PATIENT DENIES ABUSE OF ANY MEDICATION, DENIES USE OF ILLEGAL SUBSTACNES, AND STATES SHE IS ONLY USING THE MEDICATION FOR PAIN MANAGEMENT. URINE TOXICOLOGY DONE ON 12/10/16 SHOWS CONSISTENT RESULTS WITH THE PATIENT'S MEDICATION LIST. PATIENT BROUGHT THE MEDICATIONS TO TODAY'S VISIT IN THEIR ORIGINAL BOTTLES. I WOULD LIKE THE PATIENT TO SPEAK TO PSYCHOLOGIST ABOUT SWITCHING THE ZOLOFT TO CYMBALTA TO TRY TO AID IN RELIEF PAIN RELIEF. DUE TO THE SEVER PAIN IN THE SACROILIAC AREA AND THE FAVERE TEST BEING POSITIVE FOR PAIN I WOULD LIKE TO PROCEED WITH A SACROILIAC JOINT INJECTION. WE DISCUSSED THE RISKS, BENEFITS, AND ALTNERATIVES OF THE INJECTION AND THE PATIENT WOULD LIKE TO PROCEED AT THIS TIME. INSTRUCTIONS WERE GIVEN, QUESTIONS WERE ANSWERED, PATIENT REPORTS UNDERSTANDING AND AGREES WITH THE PLAN. I, NORMA FISHER, DOCUMENTED THE ABOVE INFORMATION ACTING A SCRIBE FOR DR. GREWAL. I HAVE REVIEWED THE ABOVE DOCUMENT, WRITTEN BY NORMA HUFF AND I VERIFY THAT IT IS ACCURATE. PROCEDURES PN WORKMANS' COMP OPINION IN YOUR OPINION, WAS THE INCIDENT THAT THE PATIENT DESCRIBED THE COMPETENT MEDICAL CAUSE OF THIS INJURY/ILLNESS? YES ARE THE PATIENT'S COMPLAINTS CONSISTENT WITH HIS/HER HISTORY OF THE INJURY/ILLNESS? YES IS THE PATIENT'S HISTORY OF THE INJURY/ILLNESS CONSISTENT WITH YOUR OBJECTIVE FINDING? YES WHAT IS THE PERCENTAGE OF TEMPORARY IMPAIRMENT? MODERATE TO MARKED = 66.7% IS THE PATIENT WORKING? NO DOCTOR ON SITE: MILENA SPEARS MD PROCEDURE CODES FA211 ESTABILISHED PATIENT [facility] FACILITY CHARGE G8427 DOC MEDS VERIFIED W/PT OR RE G8730 PAIN ASSESS POS TOOL F/U PLAN DOC DISPOSITION & COMMUNICATION FOLLOW UP SIJ AFTER APPROVAL ELECTRONICALLY SIGNED BY MILENA GREWAL MD ON 12/18/2016 AT 01:26 PM EDT DISCLAIMER : THIS IS A VISIT SUMMARY EXTRACTED FROM THE [employer] CHART. IT IS NOT A COPY OF THE [employer] PROGRESS NOTE. NELSON
== END ==
LOC: M PAIN 13:15
PROVIDERS: ATTEND Anesthesiology
DX: G89.29 Other chronic pain (principal); M46.1 Sacroiliitis, not elsewhere classified; M96.1 Postlaminectomy syndrome, not elsewhere classified; M51.16 Intervertebral disc disorders with radiculopathy, lumbar region; M51.17 Intervertebral disc disorders with radiculopathy, lumbosacral region; I10 Essential (primary) hypertension; F41.9 Anxiety disorder, unspecified; R60.0 Localized edema; Z79.891 Long term (current) use of opiate analgesic; Z79.899 Other long term (current) drug therapy; Z88.8 Allergy status to other drugs, medicaments and biological substances

== ENCOUNTER → 2017-03-18 | Outpatient (CLI) | payer OTHER | LOC: M PAIN 10:15 | DX: M96.1 Postlaminectomy syndrome, not elsewhere classified (principal); I10 Essential (primary) hypertension; F41.9 Anxiety disorder, unspecified; Z79.891 Long term (current) use of opiate analgesic; Z79.899 Other long term (current) drug therapy; Z88.8 Allergy status to other drugs, medicaments and biological substances | CPT/HCPCS: G0463 ==

== ENCOUNTER → 2017-07-28 | Outpatient (CLI) | payer OTHER | LOC: M PAIN 14:15 | DX: G89.29 Other chronic pain (principal); M96.1 Postlaminectomy syndrome, not elsewhere classified; I10 Essential (primary) hypertension; F41.9 Anxiety disorder, unspecified; Z79.891 Long term (current) use of opiate analgesic; Z79.899 Other long term (current) drug therapy; Z88.8 Allergy status to other drugs, medicaments and biological substances | CPT/HCPCS: G0463 ==

== ENCOUNTER → 2017-08-27 | Outpatient (CLI) | payer OTHER | LOC: M PAIN 13:45 | DX: G89.29 Other chronic pain (principal); M96.1 Postlaminectomy syndrome, not elsewhere classified; I10 Essential (primary) hypertension; F41.9 Anxiety disorder, unspecified; Z79.891 Long term (current) use of opiate analgesic; Z79.899 Other long term (current) drug therapy; Z88.8 Allergy status to other drugs, medicaments and biological substances | CPT/HCPCS: G0463 ==

== ENCOUNTER → 2017-12-08 | Outpatient (CLI) | payer OTHER | LOC: M PAIN 14:45 | DX: M96.1 Postlaminectomy syndrome, not elsewhere classified (principal); I10 Essential (primary) hypertension; F41.9 Anxiety disorder, unspecified; Z79.891 Long term (current) use of opiate analgesic; Z79.899 Other long term (current) drug therapy; Z88.8 Allergy status to other drugs, medicaments and biological substances | CPT/HCPCS: G0463 ==

== ENCOUNTER → 2018-05-13 | Outpatient (CLI) | payer OTHER ==
[~2018-05-13] MED LIST changes: -FLAX1000 PO; +FLAX10008 PO
--- NOTE | 2018-05-14 01:18 | ECWPNPC ---
PATIENT NAME: DAFNE LOVE : 1970 GENDER: FEMALE VISIT DATE: 05/13/2018 DISCHARGE DATE: 05/13/18 1116 VISIT LOCKED DATE TIME: PHYSICIAN: EARLENE HAWKINS RESOURCE: EARLENE HAWKINS REASON FOR APPOINTMENT 1. W/C LOW BACK HISTORY OF PRESENT ILLNESS HISTORY OF PRESENT ILLNESS: PAIN THE PATIENT DESCRIBES THE PAIN... THE PATIENT DESCRIBES THE PAIN... THE PATIENT DESCRIBES THE PAIN... THE PATIENT DESCRIBES THE PAIN... THE PATIENT DESCRIBES THE PAIN... THE PATIENT DESCRIBES THE PAIN... THE PATIENT DESCRIBES THE PAIN... THE PATIENT DESCRIBES THE PAIN... THE PATIENT DESCRIBES THE PAIN... THE PATIENT DESCRIBES THE PAIN... 46 YEAR OLD FEMALE PATIENT WITH HISTORY OF CHRONIC BACK PAIN. PATIENT DESCRIBES THE PAIN ACHING WITH A PAIN SCORE OF 7/10 VAS AT TODAY'S VISIT. PATIENT WAS INJURED IN A WORK RELATED INJURY IN 08/29/2008 WHEN SHE WAS MOVING GARBAGE WHILE WORKING AT [employer] IN THE [employer] INJURING HER BACK. PATIENT HAD BACK SURGERY IN MAY OF 2009 WITHOUT ANY IMPROVEMENT IN PAIN RELIEF. PATIENT REPORTS SHE HAS HAD PHYSICAL THERAPY IN THE PAST, AND DID NOT HELP AT ALL AND SHE TRY'S TO KEEP HER SELF ACTIVE AND FUNCTIONAL AT HOME IF THE PAIN IS NOT TOO BAD. HAVING NEW ONSET OF RIGHT POSTERIOR THIGH NUMBNESS AND PAIN.HAS HAD THIS FOR APPROXIMATLEY 2 WEEKS.HAS HAD THIS IN PAST AND IT RESOLVED ON ITS OWN.SHE IS HOPING THAT IT WILL RESOLVE AND REALLY DOESNT WANT TO HAVE INJECTIONS OR SURGERY. FALL RISK SCREENING: SCREENING :NO FALLS REPORTED IN THE LAST YEAR CURRENT MEDICATIONS TAKING HYDROCHLOROTHIAZIDE 12.5 MG CAPSULE 1 CAPSULE ORALLY ONCE A DAY TAKING LISINOPRIL 20 MG TABLET 1 TABLET ORALLY ONCE A DAY TAKING SERTRALINE HCL 25 MG TABLET 1 TABLET ORALLY ONCE A DAY TAKING MULTI FOR HER - TABLET ORALLY DAILY TAKING STOOL SOFTENER 100 MG CAPSULE 1 CAPSULE NEEDED ORALLY BID NEEDED FOR CONSTIPATION TAKING FLONASE 50 MCG/ACT SUSPENSION 1 SPRAY IN EACH NOSTRIL NASALLY ONCE A DAY TAKING IBUPROFEN 800 MG TABLET 1 TABLET NEEDED FOR PAIN ORALLY WITH FOOD THREE TIMES A DAY MDD3 TAKING NORCO 10-325 MG TABLET 1 ORALLY Q4H PRN MDD6 #150 TAB SHOULD LAST 30 DAYS NOT-TAKING SOMA 350 MG TABLET 1 TABLET NEEDED ORALLY FOR SPASMS AND PAIN POST PROCEDURE BID NOT-TAKING OXYCODONE HCL 5 MG TABLET 1 TABLET ORALLY DAILY FOR POST PROCEDUER PAIN MDD1 NOT-TAKING HYDROCODONE-ACETAMINOPHEN 10-325 MG TABLET 1 TABLET NEEDED ORALLY FOR PAIN EVERY 4 HRS MDD6, NOTES: DUPLICATE NOT-TAKING NAPROXEN 500 MG TABLET 1 TABLET NEEDED ORALLY EVERY 12 HRS NOT-TAKING ASPIR-81 81 MG TABLET DELAYED RELEASE 1 TABLET ORALLY ONCE A DAY MEDICATION LIST REVIEWED AND RECONCILED WITH THE PATIENT PAST MEDICAL HISTORY HTN ANXIETY FLUID RETENTION TO LEGS AND ANKLES ALLERGIES LYRICA: INCREASED ANXIETY - ALLERGY SURGICAL HISTORY CSECTION 1988 PILONDEAL CYST 1988 SCAR TISSUE REMOVAL / FROM CSECTION AREA 1995 CRANIOTOMY 2009 BACK SURGURY 2010 FAMILY HISTORY FATHER: DIAGNOSED WITH HYPERTENSION MOTHER: HYPERTENSION SOCIAL HISTORY GENERAL: TOBACCO USE ARE YOU A: NONSMOKER . LANGUAGE LANGUAGES SPOKEN:YEMENI LEARNING BARRIERS / SPECIAL NEEDS ORIENTED TO PLAN OF CARE: PATIENT, PAIN MANAGEMENT PATIENT, ORIENTED TO PLAN OF CARE: PATIENT, PAIN MANAGEMENT PATIENT. NEW PATIENT PAIN DIARY TODAY'S VISITNOTES FROM 0-10, WHAT LEVEL IS YOUR PAIN TODAY?5 PAIN CLINIC PFS, CLERGY, PUBLIC HEALTH REFERRALS PFS REFERRAL NEEDED?NO CLERGY REFERRAL NEEDED?NO PUBLIC HEALTH REFERRAL NEEDED?NO WAS THE PROVIDER NOTIFIED OF ANY PERTINENT INFO?NO HAS THE PATIENT BEEN EDUCATED REGARDING HIS/HER PLAN OF CARE?YES HAS THE PATIENT BEEN EDUCATED REGARDING PAIN, THE RISK FOR PAIN, THE IMPORTANCE OF EFFECTIVE PAIN MANAGEMENT, AND THE PAIN ASSESSMENT PROCESS?YES ADVANCE DIRECTIVE ADVANCE DIRECTIVE DISCUSSED WITH PATIENT:YES PT DOES NOT HAVE HCP AND DOES NOT WANT INFO AT THIS TIME REVIEWED WITH PT 12/08/17 1512 BV. HOSPITALIZATION/MAJOR DIAGNOSTIC PROCEDURE SEE ABOVE REVIEW OF SYSTEMS REVIEWED BY: PROVIDER: EARLENE WOLF . CONSTITUTIONAL: ANY CHANGE IN YOUR MEDICAL CONDITION? NO . CHILLS NO . FEVER NO . INFECTION: DO YOU HAVE NEW INFECTIONS? NO . DO YOU HAVE HISTORY OF MRSA? NO . MUSCULOSKELETAL: ANY NEW PATTERNS OF PAIN OR NUMBNESS? NO . GASTROENTEROLOGY: ANY NEW CHANGE IN BOWEL CONTROL? NO . GENITOURINARY: ANY NEW CHANGE IN BLADDER CONTROL? NO . IS THERE A CHANCE YOU COULD BE ? NO . HEMATOLOGY/LYMPH: DO YOU TAKE ANY BLOOD THINNERS? (FOR EXAMPLE- COUMADIN, PLAVIX, AGGRENOX, PLATEL, PRADAXA, OR XARELTO) NO . WHEN WAS YOUR LAST DOSE? DATE: TIME: . NEUROLOGY: HAVE YOU FALLEN IN THE PAST 12 MONTHS? NO . ANY NEW EXTREMITY NUMBNESS OR WEAKNESS? YES, RIGHT LEG ACHING NUMBNESS X 2 WEEKS . CARDIOLOGY: DO YOU HAVE A PACEMAKER OR DEFIBRILLATOR? NO . RESPIRATORY: HAVE YOU BEEN SICK IN THE PAST WEEK? NO . FEVER NO . FLU LIKE SYMPTOMS? NO . COUGH NO . INTEGUMENTARY: DO YOU HAVE ANY RASHES OR OPEN SORES? NO . ALLERGIC/IMMUNO: ARE YOU ALLERGIC TO IV DYE? NO . ANY NEW ALLERGIES? NO . PSYCHIATRIC: DO YOU HAVE THOUGHTS OF HURTING YOURSELF OR SOMEONE ELSE? NO . ARE YOU ABUSED, NEGLECTED, OR IN AN UNSAFE ENVIRONMENT? NO . ENDOCRINOLOGY: ARE YOU DIABETIC? NO . OTHER: DO YOU NEED ANY PRESCRIPTIONS? YES, HYDROCODONE . IF YES, PLEASE LIST: ____ . ANY NEW PROBLEMS WITH YOUR MEDICATIONS? NO . WHEN DID YOU LAST EAT? ____ . WHEN DID YOU LAST DRINK? ____ . WHAT DID YOU LAST DRINK? ____ . NAME OF PERSON DRIVING YOU HOME? ____ . DO YOU HAVE ANY OTHER QUESTIONS OR CONCERNS NO . VITAL SIGNS WT 166 LBS, HT 65 IN, BMI 27.62 INDEX, BP 132/89 MM HG, HR 89 /MIN, RR 16 /MIN, TEMP 100.2 F, OXYGEN SAT % 98, REVIEWED BY: SARIAH. EXAMINATION GENERAL EXAMINATION: LUNGS:LUNG SOUNDS ARE CLEAR. HEART:HEART RATE REGULAR. MUSCULOSKELETAL:*, MUSCLE STRENGTH TESTING 5/5 RIGHT--3/5 LEFT, PALPATION: POSITIVE FOR PAIN OVER L/S SPINE. POSITIVE FOR PAIN OVER L/S PARSPINALS. DIAGNOSTIC: . ASSESSMENTS POST LAMINECTOMY SYNDROME - M96.1 (PRIMARY) TREATMENT POST LAMINECTOMY SYNDROME REFILL IBUPROFEN TABLET, 800 MG, 1 TABLET NEEDED FOR PAIN, ORALLY WITH FOOD, THREE TIMES A DAY MDD3, 30 DAY(S), 90, REFILLS 5 REFILL NORCO TABLET, 10-325 MG, 1, ORALLY, Q4H PRN MDD6 #150 TAB SHOULD LAST 30 DAYS, 30 DAY(S), 150, REFILLS 0 NOTES: ISTOP REGISTRY REVIEWED AND DEMONSTRATES COMPLLIANCE. (REF # [id number] ) BRINGS IN MEDICATIONS WHICH IS APPROPRIATE FOR WHAT WAS DISPENSED. RECENT URINE TOXICOLOGY REVIEWED. NO UNAUTHORIZED MEDICATIONS. NO ILLICIT SUBSTANCES AND PRESCRIBED MEDICATIONS WERE PRESENT. URINE TOX TODAY, RISKS AND BENEFITS OF NARCOTIC/OPIOD MEDICATIONS WERE REVIEWED WITH PATIENT - THIS INCLUDES BUT IS NOT LIMITED TO RISK OF DEPENDANCE/DEVELOPMENT OF ADDICTION, MOOD DISTURBANCE AND DEPRESSION, OSTEOPOROSIS, HORMONAL AND LABIDAL CHANGES, RESPIRATORY DEPRESSION AND . PATIENT IS ADVISED NOT TO DRIVE OR DRINK ALCOHOL WHILE ON THESE MEDICATIONS. PROCEDURES PN WORKMANS' COMP OPINION IN YOUR OPINION, WAS THE INCIDENT THAT THE PATIENT DESCRIBED THE COMPETENT MEDICAL CAUSE OF THIS INJURY/ILLNESS? YES ARE THE PATIENT'S COMPLAINTS CONSISTENT WITH HIS/HER HISTORY OF THE INJURY/ILLNESS? YES IS THE PATIENT'S HISTORY OF THE INJURY/ILLNESS CONSISTENT WITH YOUR OBJECTIVE FINDING? YES WHAT IS THE PERCENTAGE OF TEMPORARY IMPAIRMENT? MODERATE TO MARKED = 66.7% IS THE PATIENT WORKING? NO DOCTOR ON SITE: MILENA SPEARS MD PROCEDURE CODES FA211 ESTABILISHED PATIENT [facility] CHARGE DISPOSITION & COMMUNICATION FOLLOW UP 3 MONTHS ELECTRONICALLY SIGNED BY LUCIANO TIJERINA ON 05/13/2018 AT 03:41 PM EDT DISCLAIMER : THIS IS A VISIT SUMMARY EXTRACTED FROM THE [employer] CHART. IT IS NOT A COPY OF THE [employer] PROGRESS NOTE. NELSON
== END ==
LOC: M PAIN 10:15
PROVIDERS: ATTEND Nurse Practitioner Family
DX: M96.1 Postlaminectomy syndrome, not elsewhere classified (principal); I10 Essential (primary) hypertension; F41.9 Anxiety disorder, unspecified; Z79.891 Long term (current) use of opiate analgesic; Z79.899 Other long term (current) drug therapy; Z88.8 Allergy status to other drugs, medicaments and biological substances

== ENCOUNTER → 2018-09-20 | Outpatient (CLI) | payer OTHER ==
[~2018-09-20] MED LIST changes: -/PREG50CA PO; +LYRI50CA PO
--- NOTE | 2018-09-22 00:35 | ECWPNPC ---
PATIENT NAME: DAFNE LOVE : 1970 GENDER: FEMALE VISIT DATE: 09/20/2018 DISCHARGE DATE: 09/20/18 1206 VISIT LOCKED DATE TIME: PHYSICIAN: LIZANDRO GONZALEZ RESOURCE: LIZANDRO GONZALEZ REASON FOR APPOINTMENT 1. WC LOW BACK HISTORY OF PRESENT ILLNESS HISTORY OF PRESENT ILLNESS: PAIN THE PATIENT DESCRIBES THE PAIN... 48 YEAR OLD FEMALE IN FOR CHRONIC PAIN FOLLOW UP. SHE RATES HER PAIN AT A 7/10 CURRENTLY AND DESCRIBES IT ACHING AND BURNING. SHE DOES ADMIT TO INCREASED PAIN IN HER RIGHT FOOT. SHE FEELS THE MEDICATIONS ARE WORKING WELL AND DENIES MED SIDE EFFECTS. FALL RISK SCREENING: SCREENING :NO FALLS REPORTED IN THE LAST YEAR CURRENT MEDICATIONS TAKING HYDROCHLOROTHIAZIDE 12.5 MG CAPSULE 1 CAPSULE ORALLY ONCE A DAY TAKING LISINOPRIL 20 MG TABLET 1 TABLET ORALLY ONCE A DAY TAKING SERTRALINE HCL 25 MG TABLET 1 TABLET ORALLY ONCE A DAY TAKING MULTI FOR HER - TABLET ORALLY DAILY TAKING STOOL SOFTENER 100 MG CAPSULE 1 CAPSULE NEEDED ORALLY BID NEEDED FOR CONSTIPATION TAKING FLONASE 50 MCG/ACT SUSPENSION 1 SPRAY IN EACH NOSTRIL NASALLY ONCE A DAY TAKING IBUPROFEN 800 MG TABLET 1 TABLET NEEDED FOR PAIN ORALLY WITH FOOD THREE TIMES A DAY MDD3 TAKING NORCO 10-325 MG TABLET 1 ORALLY Q4H PRN MDD6 #150 TAB SHOULD LAST 30 DAYS NOT-TAKING SOMA 350 MG TABLET 1 TABLET NEEDED ORALLY FOR SPASMS AND PAIN POST PROCEDURE BID NOT-TAKING OXYCODONE HCL 5 MG TABLET 1 TABLET ORALLY DAILY FOR POST PROCEDUER PAIN MDD1 NOT-TAKING NAPROXEN 500 MG TABLET 1 TABLET NEEDED ORALLY EVERY 12 HRS NOT-TAKING ASPIR-81 81 MG TABLET DELAYED RELEASE 1 TABLET ORALLY ONCE A DAY DISCONTINUED HYDROCODONE-ACETAMINOPHEN 10-325 MG TABLET 1 TABLET NEEDED ORALLY FOR PAIN EVERY 4 HRS MDD6, NOTES: DUPLICATE MEDICATION LIST REVIEWED AND RECONCILED WITH THE PATIENT PAST MEDICAL HISTORY HTN ANXIETY FLUID RETENTION TO LEGS AND ANKLES BACK PAIN/POST LAMINECTOMY SYNDROME ALLERGIES LYRICA: INCREASED ANXIETY - SIDE EFFECTS BEE STINGS: SEVERE SWELLING, HOT, ITCHY AND ACHY - ALLERGY TAPE ADHESIVE: REDNESS - ALLERGY SURGICAL HISTORY CSECTION 1988 PILONDEAL CYST 1988 SCAR TISSUE REMOVAL / FROM CSECTION AREA 1995 CRANIOTOMY 2009 BACK SURGURY 2009 FAMILY HISTORY MOTHER: HYPERTHYROID, HYPERTENSION FATHER: DIAGNOSED WITH HYPERTENSION DAUGHTER(S): OTHER 1DAUGHTER(S) . DAUGHTER-ENDOMETRIOSIS,DEPRESSION,PCOD. SOCIAL HISTORY GENERAL: TOBACCO USE ARE YOU A: NONSMOKER. EDUCATION LEVEL OF EDUCATION:NOT FINISHED HIGH SCHOOL GED LANGUAGE LANGUAGES SPOKEN:[place]UR[place] AND [place] ISLANDER DOMESTIC VIOLENCE DO YOU FEEL SAFE IN YOUR ENVIRONMENT?YES NEW PATIENT PAIN DIARY TODAY'S VISITNOTES FROM 0-10, WHAT LEVEL IS YOUR PAIN TODAY?5 RECREATIONAL DRUG USE DRUG USE?NO LEARNING BARRIERS / SPECIAL NEEDS BARRIERS TO LEARNING?NO HEARING IMPAIRED?NO VISION IMPAIRED?NO COGNITIVELY IMPAIRED?NO READINESS TO LEARN?YES LEARNING PREFERENCES?NO LEARNING CAPABILITIES PRESENT?YES EMOTIONAL BARRIERS?NO SPECIAL DEVICES?NO DIAGNOSTIC TECHNICIAN NEEDED?NO PAIN CLINIC PFS, CLERGY, PUBLIC HEALTH REFERRALS PFS REFERRAL NEEDED?NO CLERGY REFERRAL NEEDED?NO PUBLIC HEALTH REFERRAL NEEDED?NO WAS THE PROVIDER NOTIFIED OF ANY PERTINENT INFO? N/A HAS THE PATIENT BEEN EDUCATED REGARDING HIS/HER PLAN OF CARE?YES HAS THE PATIENT BEEN EDUCATED REGARDING PAIN, THE RISK FOR PAIN, THE IMPORTANCE OF EFFECTIVE PAIN MANAGEMENT, AND THE PAIN ASSESSMENT PROCESS?YES LATEX QUESTIONNAIRE LATEX ALLERGY : HAVE YOU EVER DEVELOPED ANY TYPE OF REACTION AFTER HANDLING LATEX PRODUCTS SUCH RUBBER GLOVES, CONDOMS, DIAPHRAGMS, BALLOONS, SOCKS, OR UNDERWEAR?NO LATEX ALLERGY : HAVE YOU EVER DEVELOPED ANY TYPE OF REACTION DURING OR AFTER DENTAL APPOINTMENT, VAGINAL/RECTAL EXAMINATION, SURGICAL PROCEDURE, OR ANY OTHER EXPOSURE?NO LATEX RISK : HAVE YOU EVER HAD ANY DIFFICULTY BREATHING OR HIVES AFTER EATING OR HANDLING ANY FRUITS, OR VEGETABLES; SUCH KIWI, BANANAS, STONE FRUITS, OR CHESTNUTSNO LATEX RISK : DO YOU HAVE A PREVIOUS PERSONAL HISTORY OF MORE THAN NINE SURGERIES, SPINA BIFIDA, OR REPEATED CATHERIZATIONS? NO LATEX RISK : ARE YOU FREQUENTLY EXPOSED TO LATEX PRODUCTS IN YOUR OCCUPATION?NO DATE ASKED : 09/20/2018 ADVANCE DIRECTIVE ADVANCE DIRECTIVE DISCUSSED WITH PATIENT:YES 09/20/18 PT DOES NOT HAVE ANY ADVANCED DIRECTIVES AND SHE DECLINES INFORMATION ON HCP AT THIS TIME. AD ZOROASTRIAN [id number] ZOROASTRIANISM ALCOHOL SCREENING DID YOU HAVE A DRINK CONTAINING ALCOHOL IN THE PAST YEAR?NO POINTS0 INTERPRETATIONNEGATIVE OCCUPATION: DISABILITY. REVIEWED WITH PT 12/08/17 1512 BV. HOSPITALIZATION/MAJOR DIAGNOSTIC PROCEDURE SEE ABOVE REVIEW OF SYSTEMS REVIEWED BY: PROVIDER: CHERIE MARX . CONSTITUTIONAL: ANY CHANGE IN YOUR MEDICAL CONDITION? NO . CHILLS NO . FEVER NO . INFECTION: DO YOU HAVE NEW INFECTIONS? NO . DO YOU HAVE HISTORY OF MRSA? NO . MUSCULOSKELETAL: ANY NEW PATTERNS OF PAIN OR NUMBNESS? YES, PAIN HAS INCREASED ROSIO ON THE LEFT SIDE--IS INTERMITTENT FOR THE PAST 3 WEEKS. DEEP AND ACHY, IN THE FLANK AREA. PAIN RIGHT SIDE THE SAME EXCEPT MORE ACHING IN RIGHT FOOT THAT IS INTERMITTENT . GASTROENTEROLOGY: ANY NEW CHANGE IN BOWEL CONTROL? NO . GENITOURINARY: ANY NEW CHANGE IN BLADDER CONTROL? NO . IS THERE A CHANCE YOU COULD BE ? NO . HEMATOLOGY/LYMPH: DO YOU TAKE ANY BLOOD THINNERS? (FOR EXAMPLE- COUMADIN, PLAVIX, AGGRENOX, PLATEL, PRADAXA, OR XARELTO) NO . WHEN WAS YOUR LAST DOSE? DATE: TIME: . NEUROLOGY: HAVE YOU FALLEN IN THE PAST 12 MONTHS? NO . ANY NEW EXTREMITY NUMBNESS OR WEAKNESS? NO . CARDIOLOGY: DO YOU HAVE A PACEMAKER OR DEFIBRILLATOR? NO . RESPIRATORY: HAVE YOU BEEN SICK IN THE PAST WEEK? NO . FEVER NO . FLU LIKE SYMPTOMS? NO . COUGH NO . INTEGUMENTARY: DO YOU HAVE ANY RASHES OR OPEN SORES? NO . ALLERGIC/IMMUNO: ARE YOU ALLERGIC TO IV DYE? NO . ANY NEW ALLERGIES? NO . PSYCHIATRIC: DO YOU HAVE THOUGHTS OF HURTING YOURSELF OR SOMEONE ELSE? NO . ARE YOU ABUSED, NEGLECTED, OR IN AN UNSAFE ENVIRONMENT? NO . ENDOCRINOLOGY: ARE YOU DIABETIC? NO . OTHER: DO YOU NEED ANY PRESCRIPTIONS? YES . IF YES, PLEASE LIST: HYDROCODONE/ ACETAMIN. . ANY NEW PROBLEMS WITH YOUR MEDICATIONS? NO . WHEN DID YOU LAST EAT? ____ . WHEN DID YOU LAST DRINK? ____ . WHAT DID YOU LAST DRINK? ____ . NAME OF PERSON DRIVING YOU HOME? ____ . DO YOU HAVE ANY OTHER QUESTIONS OR CONCERNS NO . VITAL SIGNS WT 161.8 LBS, HT 65 IN, BMI 26.92 INDEX, BP 169/81 MM HG, HR 96 /MIN, RR 16 /MIN, TEMP 98.8 F, OXYGEN SAT % 99%, SAFE IN ENV? (Y/N) Y, NA INITIALS AW 1117, REVIEWED BY: AD. EXAMINATION GENERAL EXAMINATION: GENERALNO ACUTE DISTRESS, WELL NOURISHED AND HYDRATED. PSYCHAPPROPRIATE MOOD AND AFFECT . LUNGS:CLEAR TO AUSCULTATION BILATERALLY, NO WHEEZES, RHONCHI, RALES. HEART:NO MURMURS, REGULAR RATE AND RHYTHM. ASSESSMENTS POST LAMINECTOMY SYNDROME - M96.1 (PRIMARY) TREATMENT POST LAMINECTOMY SYNDROME [facility] MRI LS SPINE W/O AND WITH [id number] NOTES: MRI FOR INCREASED RIGHT FOOT PAIN. CLINICAL NOTES: 48 YEAR OLD FEMALE IN FOR WORKERS COMP CHRONIC PAIN FOLLOW UP. GIVEN PRESENTING SYMPTOMS AND RESULTS OF PHYSICAL EXAMINATION RECOMMENDED MRI FOR FURTHER EVALUATION AND POTENTIAL RFA AND/OR EPIDURAL. WILL CONTINUE WITH CURRENT MEDICATIONS. , ISTOP REGISTRY REVIEWED AND DEMONSTRATES COMPLLIANCE. (REF # ) BRINGS IN MEDICATIONS WHICH IS APPROPRIATE FOR WHAT WAS DISPENSED. RECENT URINE TOXICOLOGY REVIEWED. NO UNAUTHORIZED MEDICATIONS. NO ILLICIT SUBSTANCES AND PRESCRIBED MEDICATIONS WERE PRESENT. PROCEDURES PN WORKMANS' COMP OPINION IN YOUR OPINION, WAS THE INCIDENT THAT THE PATIENT DESCRIBED THE COMPETENT MEDICAL CAUSE OF THIS INJURY/ILLNESS? YES ARE THE PATIENT'S COMPLAINTS CONSISTENT WITH HIS/HER HISTORY OF THE INJURY/ILLNESS? YES IS THE PATIENT'S HISTORY OF THE INJURY/ILLNESS CONSISTENT WITH YOUR OBJECTIVE FINDING? YES WHAT IS THE PERCENTAGE OF TEMPORARY IMPAIRMENT? MODERATE TO MARKED = 66.7% IS THE PATIENT WORKING? NO DOCTOR ON SITE: MILENA SPEARS MD PROCEDURE CODES FA211 ESTABILISHED PATIENT [facility] FACILITY CHARGE DISPOSITION & COMMUNICATION FOLLOW UP POST IMAGING (REASON: MRI ) ELECTRONICALLY SIGNED BY LUCIANO ATKINSON ON 09/21/2018 AT 08:42 AM EDT DISCLAIMER : THIS IS A VISIT SUMMARY EXTRACTED FROM THE [employer] CHART. IT IS NOT A COPY OF THE [employer] PROGRESS NOTE. NELSON
== END ==
LOC: M PAIN 10:45
PROVIDERS: ATTEND Family Medicine
DX: M96.1 Postlaminectomy syndrome, not elsewhere classified (principal); I10 Essential (primary) hypertension; Z86.59 Personal history of other mental and behavioral disorders; Z88.8 Allergy status to other drugs, medicaments and biological substances; Z91.030 Bee allergy status; Z91.09 Other allergy status, other than to drugs and biological substances; Z79.891 Long term (current) use of opiate analgesic; Z79.899 Other long term (current) drug therapy

== ENCOUNTER → 2018-12-13 | Outpatient (CLI) | payer OTHER ==
--- NOTE | 2018-12-15 00:40 | ECWPNPC ---
PATIENT NAME: DAFNE LOVE : 1970 GENDER: FEMALE VISIT DATE: 12/13/2018 DISCHARGE DATE: 12/13/18 1411 VISIT LOCKED DATE TIME: PHYSICIAN: LIZANDRO GONZALEZ RESOURCE: LIZANDRO GONZALEZ REASON FOR APPOINTMENT 1. REVIEW MRI HISTORY OF PRESENT ILLNESS HISTORY OF PRESENT ILLNESS: PAIN THE PATIENT DESCRIBES THE PAIN... 48-YEAR-OLD FEMALE IN FOR CHRONIC PAIN FOLLOW-UP. SHE RATES HER PAIN CURRENTLY AT A 6-7 OUT OF 10 AND DESCRIBES IT ACHING, BURNING, AND SHOOTING. SHE DID HAVE AN MRI RECENTLY AND RESULTS WILL BE REVIEWED WITH PATIENT TODAY. FALL RISK SCREENING: SCREENING :NO FALLS REPORTED IN THE LAST YEAR CURRENT MEDICATIONS TAKING HYDROCHLOROTHIAZIDE 12.5 MG CAPSULE 1 CAPSULE ORALLY ONCE A DAY TAKING LISINOPRIL 20 MG TABLET 1 TABLET ORALLY ONCE A DAY TAKING SERTRALINE HCL 25 MG TABLET 1 TABLET ORALLY ONCE A DAY TAKING MULTI FOR HER - TABLET ORALLY DAILY TAKING STOOL SOFTENER 100 MG CAPSULE 1 CAPSULE NEEDED ORALLY BID NEEDED FOR CONSTIPATION TAKING FLONASE 50 MCG/ACT SUSPENSION 1 SPRAY IN EACH NOSTRIL NASALLY ONCE A DAY TAKING IBUPROFEN 800 MG TABLET 1 TABLET NEEDED FOR PAIN ORALLY WITH FOOD THREE TIMES A DAY MDD3 TAKING NORCO 10-325 MG TABLET 1 ORALLY Q4H PRN MDD6 #150 TAB SHOULD LAST 30 DAYS NOT-TAKING SOMA 350 MG TABLET 1 TABLET NEEDED ORALLY FOR SPASMS AND PAIN POST PROCEDURE BID NOT-TAKING OXYCODONE HCL 5 MG TABLET 1 TABLET ORALLY DAILY FOR POST PROCEDUER PAIN MDD1 NOT-TAKING NAPROXEN 500 MG TABLET 1 TABLET NEEDED ORALLY EVERY 12 HRS NOT-TAKING ASPIR-81 81 MG TABLET DELAYED RELEASE 1 TABLET ORALLY ONCE A DAY MEDICATION LIST REVIEWED AND RECONCILED WITH THE PATIENT PAST MEDICAL HISTORY HTN ANXIETY FLUID RETENTION TO LEGS AND ANKLES BACK PAIN/POST LAMINECTOMY SYNDROME ALLERGIES LYRICA: INCREASED ANXIETY - SIDE EFFECTS BEE STINGS: SEVERE SWELLING, HOT, ITCHY AND ACHY - ALLERGY TAPE ADHESIVE: REDNESS - ALLERGY SURGICAL HISTORY CSECTION 1988 PILONDEAL CYST 1989 SCAR TISSUE REMOVAL / FROM CSECTION AREA 1995 CRANIOTOMY 2010 BACK SURGURY 2010 CYST REMOVED FROM SCALP AND RIGHT FOOT BOTH BENIGN 10/2018 FAMILY HISTORY MOTHER: HYPERTHYROID, HYPERTENSION FATHER: DIAGNOSED WITH HYPERTENSION DAUGHTER(S): OTHER SPECIFIED CONDITIONS INFLUENCING HEALTH STATUS 1DAUGHTER(S) . DAUGHTER-ENDOMETRIOSIS,DEPRESSION,PCOD. SOCIAL HISTORY GENERAL: TOBACCO USE ARE YOU A: NONSMOKER. EDUCATION LEVEL OF EDUCATION:NOT FINISHED HIGH SCHOOL GED LANGUAGE LANGUAGES SPOKEN:[place]AL[place]IAN DOMESTIC VIOLENCE DO YOU FEEL SAFE IN YOUR ENVIRONMENT?YES NEW PATIENT PAIN DIARY TODAY'S VISITNOTES FROM 0-10, WHAT LEVEL IS YOUR PAIN TODAY?5 RECREATIONAL DRUG USE DRUG USE?NO LEARNING BARRIERS / SPECIAL NEEDS BARRIERS TO LEARNING?NO HEARING IMPAIRED?NO VISION IMPAIRED?NO COGNITIVELY IMPAIRED?NO READINESS TO LEARN?YES LEARNING PREFERENCES?NO LEARNING CAPABILITIES PRESENT?YES EMOTIONAL BARRIERS?NO SPECIAL DEVICES?NO PATROL COMMANDER NEEDED?NO PAIN CLINIC PFS, CLERGY, PUBLIC HEALTH REFERRALS PFS REFERRAL NEEDED?NO CLERGY REFERRAL NEEDED?NO PUBLIC HEALTH REFERRAL NEEDED?NO WAS THE PROVIDER NOTIFIED OF ANY PERTINENT INFO? N/A HAS THE PATIENT BEEN EDUCATED REGARDING HIS/HER PLAN OF CARE?YES HAS THE PATIENT BEEN EDUCATED REGARDING PAIN, THE RISK FOR PAIN, THE IMPORTANCE OF EFFECTIVE PAIN MANAGEMENT, AND THE PAIN ASSESSMENT PROCESS?YES LATEX QUESTIONNAIRE LATEX ALLERGY : HAVE YOU EVER DEVELOPED ANY TYPE OF REACTION AFTER HANDLING LATEX PRODUCTS SUCH RUBBER GLOVES, CONDOMS, DIAPHRAGMS, BALLOONS, SOCKS, OR UNDERWEAR?NO LATEX ALLERGY : HAVE YOU EVER DEVELOPED ANY TYPE OF REACTION DURING OR AFTER DENTAL APPOINTMENT, VAGINAL/RECTAL EXAMINATION, SURGICAL PROCEDURE, OR ANY OTHER EXPOSURE?NO DATE ASKED : 09/20/2018 LATEX RISK : HAVE YOU EVER HAD ANY DIFFICULTY BREATHING OR HIVES AFTER EATING OR HANDLING ANY FRUITS, OR VEGETABLES; SUCH KIWI, BANANAS, STONE FRUITS, OR CHESTNUTSNO LATEX RISK : DO YOU HAVE A PREVIOUS PERSONAL HISTORY OF MORE THAN NINE SURGERIES, SPINA BIFIDA, OR REPEATED CATHERIZATIONS? NO LATEX RISK : ARE YOU FREQUENTLY EXPOSED TO LATEX PRODUCTS IN YOUR OCCUPATION?NO ADVANCE DIRECTIVE ADVANCE DIRECTIVE DISCUSSED WITH PATIENT:YES PT DOES NOT HAVE ANY ADVANCED DIRECTIVES AND SHE DECLINES INFORMATION ON HCP AT THIS TIME. YAZIDISM [id number] RESTORATIONISM ALCOHOL SCREENING DID YOU HAVE A DRINK CONTAINING ALCOHOL IN THE PAST YEAR?NO POINTS0 INTERPRETATIONNEGATIVE OCCUPATION: DISABILITY. REVIEWED WITH PT 12/08/17 1512 BV. HOSPITALIZATION/MAJOR DIAGNOSTIC PROCEDURE SEE ABOVE REVIEW OF SYSTEMS REVIEWED BY: PROVIDER: CHERIE MARX . CONSTITUTIONAL: ANY CHANGE IN YOUR MEDICAL CONDITION? NO . CHILLS NO . FEVER NO . INFECTION: DO YOU HAVE NEW INFECTIONS? NO . DO YOU HAVE HISTORY OF MRSA? NO . MUSCULOSKELETAL: ANY NEW PATTERNS OF PAIN OR NUMBNESS? NO . GASTROENTEROLOGY: ANY NEW CHANGE IN BOWEL CONTROL? NO . GENITOURINARY: ANY NEW CHANGE IN BLADDER CONTROL? NO . IS THERE A CHANCE YOU COULD BE ? NO . HEMATOLOGY/LYMPH: DO YOU TAKE ANY BLOOD THINNERS? (FOR EXAMPLE- COUMADIN, PLAVIX, AGGRENOX, PLATEL, PRADAXA, OR XARELTO) NO . WHEN WAS YOUR LAST DOSE? DATE: TIME: . NEUROLOGY: HAVE YOU FALLEN IN THE PAST 12 MONTHS? NO . ANY NEW EXTREMITY NUMBNESS OR WEAKNESS? NO . CARDIOLOGY: DO YOU HAVE A PACEMAKER OR DEFIBRILLATOR? NO . RESPIRATORY: HAVE YOU BEEN SICK IN THE PAST WEEK? YES, URI ON ABX, . FEVER YES, URI ON ABX . FLU LIKE SYMPTOMS? NO . COUGH NO . INTEGUMENTARY: DO YOU HAVE ANY RASHES OR OPEN SORES? NO . ALLERGIC/IMMUNO: ARE YOU ALLERGIC TO IV DYE? NO . ANY NEW ALLERGIES? NO . PSYCHIATRIC: DO YOU HAVE THOUGHTS OF HURTING YOURSELF OR SOMEONE ELSE? NO . ARE YOU ABUSED, NEGLECTED, OR IN AN UNSAFE ENVIRONMENT? NO . ENDOCRINOLOGY: ARE YOU DIABETIC? NO . OTHER: DO YOU NEED ANY PRESCRIPTIONS? YES, HYDROCODONE . IF YES, PLEASE LIST: ____ . ANY NEW PROBLEMS WITH YOUR MEDICATIONS? NO . WHEN DID YOU LAST EAT? ____ . WHEN DID YOU LAST DRINK? ____ . WHAT DID YOU LAST DRINK? ____ . NAME OF PERSON DRIVING YOU HOME? ____ . DO YOU HAVE ANY OTHER QUESTIONS OR CONCERNS NO . VITAL SIGNS WT 166 LBS, HT 65 IN, BMI 27.62 INDEX, BP 141/78 MM HG, HR 92 /MIN, RR 16 /MIN, TEMP 98.3 F, OXYGEN SAT % 99, REVIEWED BY: EM. EXAMINATION GENERAL EXAMINATION: GENERALNO ACUTE DISTRESS, WELL NOURISHED AND HYDRATED. PSYCHAPPROPRIATE MOOD AND AFFECT . LUNGS:CLEAR TO AUSCULTATION BILATERALLY, NO WHEEZES, RHONCHI, RALES. HEART:NO MURMURS, REGULAR RATE AND RHYTHM. ASSESSMENTS POST LAMINECTOMY SYNDROME - M96.1 (PRIMARY) TREATMENT POST LAMINECTOMY SYNDROME START BACLOFEN TABLET, 10 MG, 0.5 TABLET TID X 5 DAYS 1 TABLET WITH FOOD OR MILK, ORALLY, THREE TIMES A DAY, 30 DAY(S), 90 CLINICAL NOTES: 48-YEAR-OLD FEMALE IN FOR CHRONIC PAIN FOLLOW-UP AND TO REVIEW MRI RESULTS. MRI RESULTS WERE REVIEWED WITH PATIENT AND GIVEN PRESENTING SYMPTOMS AND RESULTS OF PHYSICAL EXAMINATION RECOMMENDED STARTING BACLOFEN 10 MG 3 TIMES A DAY WITH FOLLOW-UP IN ONE MONTH TO DETERMINE EFFICACY OF TREATMENT. FURTHER DISCUSSED A POTENTIAL CAUDAL EPIDURAL IN THE FUTURE. PATIENT HAS EXPRESSED UNDERSTANDING OF AND WAS IN AGREEMENT WITH TREATMENT PLAN. GIVEN TIME TO ASK QUESTIONS AND EXPRESS CONCERNS., ISTOP REGISTRY REVIEWED AND DEMONSTRATES COMPLLIANCE. (REF # [id number] ) BRINGS IN MEDICATIONS WHICH IS APPROPRIATE FOR WHAT WAS DISPENSED. RECENT URINE TOXICOLOGY REVIEWED. NO UNAUTHORIZED MEDICATIONS. NO ILLICIT SUBSTANCES AND PRESCRIBED MEDICATIONS WERE PRESENT. OTHERS NOTES: BACLOFEN ORAL MATERIAL WAS PRINTED. PROCEDURE CODES FA211 ESTABILISHED PATIENT [facility] CHARGE DISPOSITION & COMMUNICATION FOLLOW UP 4 WEEKS (REASON: NEW MEDICATION) ELECTRONICALLY SIGNED BY LUCIANO AKTINSON ON 12/14/2018 AT 08:51 AM EDT DISCLAIMER : THIS IS A VISIT SUMMARY EXTRACTED FROM THE [employer] CHART. IT IS NOT A COPY OF THE [employer] PROGRESS NOTE. MTDD
== END ==
LOC: M PAIN 13:15
PROVIDERS: ATTEND Family Medicine
DX: M96.1 Postlaminectomy syndrome, not elsewhere classified (principal); I10 Essential (primary) hypertension; F41.9 Anxiety disorder, unspecified; R60.9 Edema, unspecified; Z79.891 Long term (current) use of opiate analgesic; Z79.1 Long term (current) use of non-steroidal anti-inflammatories (NSAID); Z79.899 Other long term (current) drug therapy; Z88.8 Allergy status to other drugs, medicaments and biological substances; Z91.030 Bee allergy status; Z91.048 Other nonmedicinal substance allergy status

== ENCOUNTER → 2019-03-11 | Outpatient (CLI) | payer OTHER ==
--- NOTE | 2019-03-15 01:54 | ECWPNPC ---
PATIENT NAME: DAFNE LOVE : 1970 GENDER: FEMALE VISIT DATE: 03/11/2019 DISCHARGE DATE: 03/11/19 1502 VISIT LOCKED DATE TIME: PHYSICIAN: LIZANDRO GONZALEZ RESOURCE: LIZANDRO GONZALEZ REASON FOR APPOINTMENT 1. W/C, MEDICATION CHANGE HISTORY OF PRESENT ILLNESS HISTORY OF PRESENT ILLNESS: PAIN THE PATIENT DESCRIBES THE PAIN... 48-YEAR-OLD FEMALE IN FOR WORKER'S COMP. CHRONIC PAIN FOLLOW-UP. AT LAST CLINIC VISIT SHE WAS STARTED ON BACLOFEN AND PATIENT ADMITS TODAY THAT THIS WAS INEFFECTIVE IN RELIEVING HER PAIN SYMPTOMS. SHE RATES HER PAIN CURRENTLY AT A 5 OUT OF 10 AND DESCRIBES IT ACHING, AND BURNING. SHE FEELS THE MEDICATIONS ARE WORKING WELL AND DENIES MED SIDE EFFECTS THIS TIME. PATIENT WAS INJURED IN A WORK RELATED INJURY IN 08/29/2008 WHEN SHE WAS MOVING GARBAGE WHILE WORKING AT [employer] [place] INJURING HER BACK. PATIENT HAD BACK SURGERY IN MAY OF 2009 WITHOUT ANY IMPROVEMENT IN PAIN RELIEF. FALL RISK SCREENING: SCREENING :NO FALLS REPORTED IN THE LAST YEAR CURRENT MEDICATIONS TAKING HYDROCHLOROTHIAZIDE 12.5 MG CAPSULE 1 CAPSULE ORALLY ONCE A DAY TAKING LISINOPRIL 20 MG TABLET 1 TABLET ORALLY ONCE A DAY TAKING SERTRALINE HCL 25 MG TABLET 1 TABLET ORALLY ONCE A DAY TAKING MULTI FOR HER - TABLET ORALLY DAILY TAKING STOOL SOFTENER 100 MG CAPSULE 1 CAPSULE NEEDED ORALLY BID NEEDED FOR CONSTIPATION TAKING FLONASE 50 MCG/ACT SUSPENSION 1 SPRAY IN EACH NOSTRIL NASALLY ONCE A DAY TAKING IBUPROFEN 800 MG TABLET 1 TABLET NEEDED FOR PAIN ORALLY WITH FOOD THREE TIMES A DAY MDD3 TAKING NORCO 10-325 MG TABLET 1 ORALLY Q4H PRN MDD6 #150 TAB SHOULD LAST 30 DAYS NOT-TAKING BACLOFEN 10 MG TABLET 0.5 TABLET TID X 5 DAYS 1 TABLET WITH FOOD OR MILK ORALLY THREE TIMES A DAY NOT-TAKING SOMA 350 MG TABLET 1 TABLET NEEDED ORALLY FOR SPASMS AND PAIN POST PROCEDURE BID NOT-TAKING OXYCODONE HCL 5 MG TABLET 1 TABLET ORALLY DAILY FOR POST PROCEDUER PAIN MDD1 NOT-TAKING NAPROXEN 500 MG TABLET 1 TABLET NEEDED ORALLY EVERY 12 HRS NOT-TAKING ASPIR-81 81 MG TABLET DELAYED RELEASE 1 TABLET ORALLY ONCE A DAY MEDICATION LIST REVIEWED AND RECONCILED WITH THE PATIENT PAST MEDICAL HISTORY HTN ANXIETY FLUID RETENTION TO LEGS AND ANKLES BACK PAIN/POST LAMINECTOMY SYNDROME ALLERGIES LYRICA: INCREASED ANXIETY - SIDE EFFECTS BEE STINGS: SEVERE SWELLING, HOT, ITCHY AND ACHY - ALLERGY TAPE ADHESIVE: REDNESS - ALLERGY SURGICAL HISTORY CSECTION 1988 PILONDEAL CYST 1988 SCAR TISSUE REMOVAL / FROM CSECTION AREA 1995 CRANIOTOMY 2010 BACK SURGURY 2010 CYST REMOVED FROM SCALP AND RIGHT FOOT BOTH BENIGN 10/2018 FAMILY HISTORY MOTHER: HYPERTHYROID, HYPERTENSION FATHER: DIAGNOSED WITH HYPERTENSION DAUGHTER(S): OTHER SPECIFIED CONDITIONS INFLUENCING HEALTH STATUS 1DAUGHTER(S) . DAUGHTER-ENDOMETRIOSIS,DEPRESSION,PCOD. SOCIAL HISTORY GENERAL: TOBACCO USE ARE YOU A: NONSMOKER. EDUCATION LEVEL OF EDUCATION:NOT FINISHED HIGH SCHOOL GED LANGUAGE LANGUAGES SPOKEN:[place] DOMESTIC VIOLENCE DO YOU FEEL SAFE IN YOUR ENVIRONMENT?YES NEW PATIENT PAIN DIARY TODAY'S VISITNOTES FROM 0-10, WHAT LEVEL IS YOUR PAIN TODAY?5 RECREATIONAL DRUG USE DRUG USE?NO LEARNING BARRIERS / SPECIAL NEEDS BARRIERS TO LEARNING?NO HEARING IMPAIRED?NO VISION IMPAIRED?NO COGNITIVELY IMPAIRED?NO READINESS TO LEARN?YES LEARNING PREFERENCES?NO LEARNING CAPABILITIES PRESENT?YES EMOTIONAL BARRIERS?NO SPECIAL DEVICES?NO GERIATRIC ASSISTANT NEEDED?NO PAIN CLINIC PFS, CLERGY, PUBLIC HEALTH REFERRALS PFS REFERRAL NEEDED?NO CLERGY REFERRAL NEEDED?NO PUBLIC HEALTH REFERRAL NEEDED?NO WAS THE PROVIDER NOTIFIED OF ANY PERTINENT INFO?YES N/A HAS THE PATIENT BEEN EDUCATED REGARDING HIS/HER PLAN OF CARE?YES HAS THE PATIENT BEEN EDUCATED REGARDING PAIN, THE RISK FOR PAIN, THE IMPORTANCE OF EFFECTIVE PAIN MANAGEMENT, AND THE PAIN ASSESSMENT PROCESS?YES LATEX QUESTIONNAIRE LATEX ALLERGY : HAVE YOU EVER DEVELOPED ANY TYPE OF REACTION AFTER HANDLING LATEX PRODUCTS SUCH RUBBER GLOVES, CONDOMS, DIAPHRAGMS, BALLOONS, SOCKS, OR UNDERWEAR?NO LATEX ALLERGY : HAVE YOU EVER DEVELOPED ANY TYPE OF REACTION DURING OR AFTER DENTAL APPOINTMENT, VAGINAL/RECTAL EXAMINATION, SURGICAL PROCEDURE, OR ANY OTHER EXPOSURE?NO LATEX RISK : HAVE YOU EVER HAD ANY DIFFICULTY BREATHING OR HIVES AFTER EATING OR HANDLING ANY FRUITS, OR VEGETABLES; SUCH KIWI, BANANAS, STONE FRUITS, OR CHESTNUTSNO LATEX RISK : DO YOU HAVE A PREVIOUS PERSONAL HISTORY OF MORE THAN NINE SURGERIES, SPINA BIFIDA, OR REPEATED CATHERIZATIONS? NO LATEX RISK : ARE YOU FREQUENTLY EXPOSED TO LATEX PRODUCTS IN YOUR OCCUPATION?NO DATE ASKED : 03/11/2019 ADVANCE DIRECTIVE ADVANCE DIRECTIVE DISCUSSED WITH PATIENT:YES PT DOES NOT HAVE ANY ADVANCED DIRECTIVES AND SHE DECLINES INFORMATION ON HCP AT THIS TIME. LUTHERAN [id number] PENTECOSTALISM ALCOHOL SCREENING DID YOU HAVE A DRINK CONTAINING ALCOHOL IN THE PAST YEAR?NO POINTS0 INTERPRETATIONNEGATIVE OCCUPATION: DISABILITY. REVIEWED WITH PT 12/08/17 1512 BVREVIEWED WITH PATIENT 03/11/2019 DS. HOSPITALIZATION/MAJOR DIAGNOSTIC PROCEDURE SEE ABOVE REVIEW OF SYSTEMS REVIEWED BY: PROVIDER: CHERIE WOLF-Angela . CONSTITUTIONAL: ANY CHANGE IN YOUR MEDICAL CONDITION? NO . CHILLS NO . FEVER NO . INFECTION: DO YOU HAVE NEW INFECTIONS? PT STATES THAT SHE HAS UPPER RESP INFECTION, TREATED WITH ANTIBIOTICS, COMPLETED MEDS . DO YOU HAVE HISTORY OF MRSA? NO . MUSCULOSKELETAL: ANY NEW PATTERNS OF PAIN OR NUMBNESS? NO . GASTROENTEROLOGY: ANY NEW CHANGE IN BOWEL CONTROL? NO . GENITOURINARY: ANY NEW CHANGE IN BLADDER CONTROL? NO . IS THERE A CHANCE YOU COULD BE ? NO . HEMATOLOGY/LYMPH: DO YOU TAKE ANY BLOOD THINNERS? (FOR EXAMPLE- COUMADIN, PLAVIX, AGGRENOX, PLATEL, PRADAXA, OR XARELTO) NO . WHEN WAS YOUR LAST DOSE? DATE: TIME: . NEUROLOGY: HAVE YOU FALLEN IN THE PAST 12 MONTHS? NO . ANY NEW EXTREMITY NUMBNESS OR WEAKNESS? NO . CARDIOLOGY: DO YOU HAVE A PACEMAKER OR DEFIBRILLATOR? NO . RESPIRATORY: HAVE YOU BEEN SICK IN THE PAST WEEK? YES, PT STATES THAT SHE HAS BEEN DIAGNOSED WITH UPPER RESP INFECTION, TREATED WITH ANTIBIOTICS, CONTINUES WITH COUGHING AT INTERVALS . FEVER NO . FLU LIKE SYMPTOMS? NO . COUGH NO . INTEGUMENTARY: DO YOU HAVE ANY RASHES OR OPEN SORES? NO . ALLERGIC/IMMUNO: ARE YOU ALLERGIC TO IV DYE? NO . ANY NEW ALLERGIES? NO . PSYCHIATRIC: DO YOU HAVE THOUGHTS OF HURTING YOURSELF OR SOMEONE ELSE? NO . ARE YOU ABUSED, NEGLECTED, OR IN AN UNSAFE ENVIRONMENT? NO . ENDOCRINOLOGY: ARE YOU DIABETIC? NO . OTHER: DO YOU NEED ANY PRESCRIPTIONS? IBUPROFEN 800 MG . IF YES, PLEASE LIST: ____ . ANY NEW PROBLEMS WITH YOUR MEDICATIONS? NO . WHEN DID YOU LAST EAT? ____ . WHEN DID YOU LAST DRINK? ____ . WHAT DID YOU LAST DRINK? ____ . NAME OF PERSON DRIVING YOU HOME? ____ . DO YOU HAVE ANY OTHER QUESTIONS OR CONCERNS NO . VITAL SIGNS WT 166.2 LBS, HT 65 IN, BMI 27.65 INDEX, BP 121/69 MM HG, HR 82 /MIN, RR 16 /MIN, TEMP 99.1 F, OXYGEN SAT % 99, SAFE IN ENV? (Y/N) Y, REVIEWED BY: NAMAN. EXAMINATION GENERAL EXAMINATION: GENERALNO ACUTE DISTRESS, WELL NOURISHED AND HYDRATED. PSYCHAPPROPRIATE MOOD AND AFFECT . LUNGS:CLEAR TO AUSCULTATION BILATERALLY, NO WHEEZES, RHONCHI, RALES. HEART:NO MURMURS, REGULAR RATE AND RHYTHM. ASSESSMENTS POST LAMINECTOMY SYNDROME - M96.1 (PRIMARY) CHRONIC PRESCRIPTION OPIATE USE - Z79.891 TREATMENT POST LAMINECTOMY SYNDROME REFILL IBUPROFEN TABLET, 800 MG, 1 TABLET NEEDED FOR PAIN, ORALLY WITH FOOD, THREE TIMES A DAY MDD3, 30 DAY(S), 90, REFILLS 5 CLINICAL NOTES: 48-YEAR-OLD FEMALE IN FOR WORKER'S COMP. CHRONIC PAIN FOLLOW-UP. GIVEN PRESENTING SYMPTOMS AND RESULTS OF PHYSICAL EXAMINATION RECOMMENDED CONTINUATION OF CURRENT MEDICATION REGIMEN WITH FOLLOW-UP IN 3 MONTHS. PATIENT HAS EXPRESSED UNDERSTANDING OF AND WAS IN AGREEMENT WITH TREATMENT PLAN. GIVEN TIME TO ASK QUESTIONS AND EXPRESS CONCERNS., ISTOP REGISTRY REVIEWED AND DEMONSTRATES COMPLLIANCE. (REF # [id number] ) BRINGS IN MEDICATIONS WHICH IS APPROPRIATE FOR WHAT WAS DISPENSED. RECENT URINE TOXICOLOGY REVIEWED. NO UNAUTHORIZED MEDICATIONS. NO ILLICIT SUBSTANCES AND PRESCRIBED MEDICATIONS WERE PRESENT. PROCEDURES PN WORKMANS' COMP OPINION IN YOUR OPINION, WAS THE INCIDENT THAT THE PATIENT DESCRIBED THE COMPETENT MEDICAL CAUSE OF THIS INJURY/ILLNESS? YES ARE THE PATIENT'S COMPLAINTS CONSISTENT WITH HIS/HER HISTORY OF THE INJURY/ILLNESS? YES IS THE PATIENT'S HISTORY OF THE INJURY/ILLNESS CONSISTENT WITH YOUR OBJECTIVE FINDING? YES WHAT IS THE PERCENTAGE OF TEMPORARY IMPAIRMENT? MODERATE TO MARKED = 66.7% IS THE PATIENT WORKING? NO DOCTOR ON SITE: MILENA SPEARS MD PREVENTIVE MEDICINE PAIN CLINIC TEACHING: THE PATIENT HAS BEEN EDUCATED REGARDING PAIN, THE RISK FOR PAIN, THE IMPORTANCE OF EFFECTIVE PAIN MANAGEMENT, AND THE PAIN ASSESSMENT PROCESS. : REVIEWED AND DISCUSSED TREATMENT PLAN WITH PATIENT, PT ACKNOWLEDGED UNDERSTANDING. NAMAN PROCEDURE CODES FA211 ESTABILISHED PATIENT [facility] CHARGE DISPOSITION & COMMUNICATION FOLLOW UP 3 MONTHS (REASON: BACK PAIN, WORKER'S COMP.) ELECTRONICALLY SIGNED BY LUCIANO ATKINSON ON 03/14/2019 AT 08:53 AM EST DISCLAIMER : THIS IS A VISIT SUMMARY EXTRACTED FROM THE [employer] CHART. IT IS NOT A COPY OF THE [employer] PROGRESS NOTE. NELSON
== END ==
LOC: M PAIN 14:15
PROVIDERS: ATTEND Family Medicine
DX: M96.1 Postlaminectomy syndrome, not elsewhere classified (principal); Z79.891 Long term (current) use of opiate analgesic

== ENCOUNTER → 2019-11-17 | Outpatient (CLI) | payer OTHER ==
[~2019-11-17] MED LIST changes: -ASPI81TA85 PO; +ASPI81TA86 PO
--- NOTE | 2019-11-18 10:27 | ECWPNPC ---
PATIENT NAME: DAFNE LOVE : 1970 GENDER: FEMALE VISIT DATE: 11/17/2019 DISCHARGE DATE: 11/17/19 1114 VISIT LOCKED DATE TIME: PHYSICIAN: LIZANDRO GONZALEZ PHYSICIAN PAGER NO: ACTIVE RESOURCE: LIZANDRO GONZALEZ REASON FOR APPOINTMENT 1. BACK HISTORY OF PRESENT ILLNESS DEPRESSION SCREENING: PHQ-2 (2015 EDITION) LITTLE INTEREST OR PLEASURE IN DOING THINGS?NOT AT ALL FEELING DOWN, DEPRESSED, OR HOPELESS?NOT AT ALL TOTAL SCORE0 49-YEAR-OLD FEMALE IN FOR CHRONIC PAIN FOLLOW-UP. SHE RATES HER PAIN CURRENTLY AT A 5 OUT OF 10 AND DESCRIBES IT ACHING, BURNING, SHARP, STABBING, THROBBING, AND SHOOTING. PATIENT FEELS HER MEDICATIONS ARE HELPFUL AND DENIES MED SIDE EFFECTS AT THIS TIME. PATIENT WAS INJURED IN A WORK RELATED INJURY IN 08/29/2008 WHEN SHE WAS MOVING GARBAGE WHILE WORKING AT [employer] IN THE [place] [address] INJURING HER BACK. PATIENT HAD BACK SURGERY IN MAY OF 2009 WITHOUT ANY IMPROVEMENT IN PAIN RELIEF. GENERAL: -. FALL RISK SCREENING: SCREENING :NO FALLS REPORTED IN THE LAST YEAR PAIN SCREENING: PATIENT HAS A COMPLAINT OF ACUTE OR CHRONIC PAIN :YES LOCATION OF PAIN:LOW BACK INTENSITY OF PAIN (SCALE OF 1 TO 10):5 WHAT DOES YOUR PAIN FEEL LIKE:ACHING, BURNING, SHARP, STABBING, THROBBING, SHOOTING DURATION:CONTINOUS, AWAKENS FROM SLEEP PAIN IS INCREASED BY:ACTIVITIES, PROLONGED STANDING, OTHERS SITTING PAIN IS DECREASED BY:USE OF PAIN MEDICATIONS, OTHERS HEAT NURSING NOTE: -. PAIN CENTER INTAKE QUESTIONS: DO YOU HAVE A HISTORY OF MRSA? :NO DO YOU TAKE A BLOOD THINNERS? :NO DO YOU HAVE ANY BLEEDING DISORDERS? :NO ANY NEW NUMBNESS OR WEAKNESS IN YOUR LEGS OR ARMS? :NO ANY PACEMAKER,DEFIBRILLATOR, OR DORSAL COLUMN STIMULATOR? :NO DO YOU HAVE ANY RASHES OR OPEN SORES? :NO ARE YOU ALLERGIC TO IV DYE? :NO ARE YOU DIABETIC? :NO ANY NEW PROBLEMS WITH YOUR MEDICATIONS? :NO HAVE YOU RECEIVED A VACCINE IN THE PAST 30 DAYS? :NO DO YOU PLAN TO RECEIVE A VACCINE IN THE NEXT 21 DAYS? :NO DO YOU NEED ANY PRESCRIPTION? :NO DO YOU TAKE ANY IMMUNOSUPPRESSIVE MEDICATIONS? :NO IS THERE A CHANCE YOU COULD BE ? :NO ARE YOU BREAST FEEDING? :NO CURRENT MEDICATIONS TAKING HYDROCHLOROTHIAZIDE 12.5 MG CAPSULE 1 CAPSULE ORALLY ONCE A DAY TAKING LISINOPRIL 20 MG TABLET 1 TABLET ORALLY ONCE A DAY TAKING MULTI FOR HER - TABLET ORALLY DAILY TAKING STOOL SOFTENER 100 MG CAPSULE 1 CAPSULE NEEDED ORALLY BID NEEDED FOR CONSTIPATION TAKING FLONASE 50 MCG/ACT SUSPENSION 1 SPRAY IN EACH NOSTRIL NASALLY ONCE A DAY TAKING IBUPROFEN 800 MG TABLET 1 TABLET NEEDED FOR PAIN ORALLY WITH FOOD THREE TIMES A DAY MDD3 TAKING NORCO 10-325 MG TABLET 1 ORALLY Q4H PRN MDD6 #150 TAB SHOULD LAST 30 DAYS NOT-TAKING CYMBALTA 30 MG CAPSULE DELAYED RELEASE PARTICLES 1 CAPSULE ORALLY ONCE A DAY NOT-TAKING SERTRALINE HCL 25 MG TABLET 1 TABLET ORALLY ONCE A DAY NOT-TAKING BACLOFEN 10 MG TABLET 0.5 TABLET TID X 5 DAYS 1 TABLET WITH FOOD OR MILK ORALLY THREE TIMES A DAY NOT-TAKING SOMA 350 MG TABLET 1 TABLET NEEDED ORALLY FOR SPASMS AND PAIN POST PROCEDURE BID NOT-TAKING OXYCODONE HCL 5 MG TABLET 1 TABLET ORALLY DAILY FOR POST PROCEDUER PAIN MDD1 NOT-TAKING NAPROXEN 500 MG TABLET 1 TABLET NEEDED ORALLY EVERY 12 HRS NOT-TAKING ASPIR-81 81 MG TABLET DELAYED RELEASE 1 TABLET ORALLY ONCE A DAY MEDICATION LIST REVIEWED AND RECONCILED WITH THE PATIENT PAST MEDICAL HISTORY HTN ANXIETY FLUID RETENTION TO LEGS AND ANKLES BACK PAIN/POST LAMINECTOMY SYNDROME ALLERGIES LYRICA: INCREASED ANXIETY - SIDE EFFECTS BEE STINGS: SEVERE SWELLING, HOT, ITCHY AND ACHY - ALLERGY TAPE ADHESIVE: REDNESS - ALLERGY SURGICAL HISTORY CSECTION 1988 PILONDEAL CYST 1988 SCAR TISSUE REMOVAL / FROM CSECTION AREA 1995 CRANIOTOMY 2009 BACK SURGURY 2010 CYST REMOVED FROM SCALP AND RIGHT FOOT BOTH BENIGN 10/2018 FAMILY HISTORY MOTHER: HYPERTHYROID, HYPERTENSION FATHER: DIAGNOSED WITH HYPERTENSION DAUGHTER(S): OTHER SPECIFIED CONDITIONS INFLUENCING HEALTH STATUS 1DAUGHTER(S) . DAUGHTER-ENDOMETRIOSIS,DEPRESSION,PCOD. SOCIAL HISTORY GENERAL: TOBACCO USE ARE YOU A: NONSMOKER. LATEX QUESTIONNAIRE LATEX ALLERGY : HAVE YOU EVER DEVELOPED ANY TYPE OF REACTION AFTER HANDLING LATEX PRODUCTS SUCH RUBBER GLOVES, CONDOMS, DIAPHRAGMS, BALLOONS, SOCKS, OR UNDERWEAR?NO LATEX ALLERGY : HAVE YOU EVER DEVELOPED ANY TYPE OF REACTION DURING OR AFTER DENTAL APPOINTMENT, VAGINAL/RECTAL EXAMINATION, SURGICAL PROCEDURE, OR ANY OTHER EXPOSURE?NO LATEX RISK : HAVE YOU EVER HAD ANY DIFFICULTY BREATHING OR HIVES AFTER EATING OR HANDLING ANY FRUITS, OR VEGETABLES; SUCH KIWI, BANANAS, STONE FRUITS, OR CHESTNUTSNO LATEX RISK : DO YOU HAVE A PREVIOUS PERSONAL HISTORY OF MORE THAN NINE SURGERIES, SPINA BIFIDA, OR REPEATED CATHERIZATIONS? NO LATEX RISK : ARE YOU FREQUENTLY EXPOSED TO LATEX PRODUCTS IN YOUR OCCUPATION?NO DATE ASKED : 11/17/2019 ALCOHOL SCREENING DID YOU HAVE A DRINK CONTAINING ALCOHOL IN THE PAST YEAR?NO POINTS0 INTERPRETATIONNEGATIVE RECREATIONAL DRUG USE DRUG USE?NO RESTORATION [id number] [employer]ISM LANGUAGE LANGUAGES SPOKEN:[place] EDUCATION LEVEL OF EDUCATION:NOT FINISHED HIGH SCHOOL GED LEARNING BARRIERS / SPECIAL NEEDS BARRIERS TO LEARNING?NO HEARING IMPAIRED?NO VISION IMPAIRED?NO COGNITIVELY IMPAIRED?NO READINESS TO LEARN?YES LEARNING PREFERENCES?NO LEARNING CAPABILITIES PRESENT?YES EMOTIONAL BARRIERS?NO SPECIAL DEVICES?NO ALTERATION TAILOR APPRENTICE NEEDED?NO DOMESTIC VIOLENCE DO YOU FEEL SAFE IN YOUR ENVIRONMENT?YES OCCUPATION: DISABILITY. NEW PATIENT PAIN DIARY TODAY'S VISITNOTES FROM 0-10, WHAT LEVEL IS YOUR PAIN TODAY?5 PAIN CLINIC PFS, CLERGY, PUBLIC HEALTH REFERRALS PFS REFERRAL NEEDED?NO CLERGY REFERRAL NEEDED?NO PUBLIC HEALTH REFERRAL NEEDED?NO WAS THE PROVIDER NOTIFIED OF ANY PERTINENT INFO?YES N/A HAS THE PATIENT BEEN EDUCATED REGARDING HIS/HER PLAN OF CARE?YES HAS THE PATIENT BEEN EDUCATED REGARDING PAIN, THE RISK FOR PAIN, THE IMPORTANCE OF EFFECTIVE PAIN MANAGEMENT, AND THE PAIN ASSESSMENT PROCESS?YES ADVANCE DIRECTIVE ADVANCE DIRECTIVE DISCUSSED WITH PATIENT:YES PT DOES NOT HAVE ANY ADVANCED DIRECTIVES AND SHE DECLINES INFORMATION ON HCP AT THIS TIME. REVIEWED WITH PT 12/08/17 1512 BVREVIEWED WITH PATIENT 03/11/2019 DS. HOSPITALIZATION/MAJOR DIAGNOSTIC PROCEDURE SEE ABOVE REVIEW OF SYSTEMS CONSTITUTIONAL: ANY RECENT FEVER NO . CHILLS NO . WEIGHT CHANGE OF UNKNOWN REASONS NO . GASTROENTEROLOGY: NEW UNEXPLAINABLE CHANGES IN BOWEL CONTROL NO . CONSTIPATION NO . GENITOURINARY: ANY NEW CHANGE IN BLADDER CONTROL? NO . NEUROLOGY: NEW ONSET DIZZINESS OR NEUROLOGICAL CHANGES NOT MENTIONED NO . NEW NUMBNESS OR PAIN PATTERNS NOT MENTIONED AND PERTINENT TO TODAY'S VISIT NO . CARDIOLOGY: NEW CHEST PRESSURE NO . NEW CHEST PAIN NO . RESPIRATORY: UNEXPLAINABLE COUGH NO . NEW SHORTNESS OF BREATH NO . VITAL SIGNS WT 156 LBS, HT 65 IN, BMI 25.96 INDEX, BP 143/95 MM HG, HR 80 /MIN, RR 18 /MIN, TEMP 98.2 F, OXYGEN SAT % 99%, NA INITIALS SC 10:50, REVIEWED BY: GIA. EXAMINATION GENERAL EXAMINATION: GENERALNO ACUTE DISTRESS, WELL NOURISHED AND HYDRATED. PSYCHAPPROPRIATE MOOD AND AFFECT . LUNGS:CLEAR TO AUSCULTATION BILATERALLY, NO WHEEZES, RHONCHI, RALES. HEART:NO MURMURS, REGULAR RATE AND RHYTHM. ASSESSMENTS POSTLAMINECTOMY SYNDROME, NOT ELSEWHERE CLASSIFIED - M96.1 (PRIMARY) TREATMENT POSTLAMINECTOMY SYNDROME, NOT ELSEWHERE CLASSIFIED CLINICAL NOTES: 49-YEAR-OLD FEMALE IN FOR CHRONIC PAIN FOLLOW-UP. GIVEN PRESENTING SYMPTOMS RECOMMENDED CONTINUATION OF CURRENT MEDICATION REGIMEN WITH FOLLOW-UP IN 3 MONTHS. PATIENT HAS EXPRESSED UNDERSTANDING OF AND WAS IN AGREEMENT WITH TREATMENT PLAN. GIVEN TIME TO ASK QUESTIONS AND EXPRESS CONCERNS. , ISTOP REGISTRY REVIEWED AND DEMONSTRATES COMPLLIANCE. (REF # [id number] ) BRINGS IN MEDICATIONS WHICH IS APPROPRIATE FOR WHAT WAS DISPENSED. RECENT URINE TOXICOLOGY REVIEWED. NO UNAUTHORIZED MEDICATIONS. NO ILLICIT SUBSTANCES AND PRESCRIBED MEDICATIONS WERE PRESENT. PROCEDURES PN WORKMANS' COMP OPINION IN YOUR OPINION, WAS THE INCIDENT THAT THE PATIENT DESCRIBED THE COMPETENT MEDICAL CAUSE OF THIS INJURY/ILLNESS? YES ARE THE PATIENT'S COMPLAINTS CONSISTENT WITH HIS/HER HISTORY OF THE INJURY/ILLNESS? YES IS THE PATIENT'S HISTORY OF THE INJURY/ILLNESS CONSISTENT WITH YOUR OBJECTIVE FINDING? YES WHAT IS THE PERCENTAGE OF TEMPORARY IMPAIRMENT? MODERATE TO MARKED = 66.7% IS THE PATIENT WORKING? NO DOCTOR ON SITE: MILENA SPEARS MD PREVENTIVE MEDICINE PAIN CLINIC TEACHING: THE PATIENT HAS BEEN EDUCATED REGARDING PAIN, THE RISK FOR PAIN, THE IMPORTANCE OF EFFECTIVE PAIN MANAGEMENT, AND THE PAIN ASSESSMENT PROCESS. : REVIEWED PLAN OF CARE WITH CONTINUED MEDICATION. PT ACKNOWLEDGES YURIDIA. GIA DISPOSITION & COMMUNICATION FOLLOW UP 3 MONTHS (REASON: BACK PAIN) ELECTRONICALLY SIGNED BY LUCIANO ATKINSON ON 11/18/2019 AT 09:00 AM EDT DISCLAIMER : THIS IS A VISIT SUMMARY EXTRACTED FROM THE [facility] CHART. IT IS NOT A COPY OF THE [facility] PROGRESS NOTE. NELSON
== END ==
LOC: M PAIN 10:30
PROVIDERS: ATTEND Family Medicine
DX: M96.1 Postlaminectomy syndrome, not elsewhere classified (principal); I10 Essential (primary) hypertension; Z86.59 Personal history of other mental and behavioral disorders; Z88.8 Allergy status to other drugs, medicaments and biological substances; Z91.030 Bee allergy status; Z91.09 Other allergy status, other than to drugs and biological substances; Z79.891 Long term (current) use of opiate analgesic; Z79.899 Other long term (current) drug therapy

== ENCOUNTER → 2020-03-08 | Outpatient (CLI) | payer OTHER ==
[~2020-03-08] MED LIST changes: +LISI10TA22 PO; -LISI10TA4 PO
--- NOTE | 2020-03-13 01:49 | ECWPNPC ---
PATIENT NAME: DAFNE LOVE : 1970 GENDER: FEMALE VISIT DATE: 03/08/2020 DISCHARGE DATE: 03/08/20 1515 VISIT LOCKED DATE TIME: PHYSICIAN: LIZANDRO GONZALEZ PHYSICIAN PAGER NO: ACTIVE RESOURCE: LIZANDRO GONZALEZ REASON FOR APPOINTMENT 1. BACK PAIN HISTORY OF PRESENT ILLNESS GENERAL: -49-YEAR-OLD FEMALE IN FOR WORKER'S COMP. CHRONIC PAIN FOLLOW-UP. SHE FEELS HER MEDICATIONS ARE HELPFUL AND DENIES MED SIDE EFFECTS AT THIS TIME. SHE RATES HER PAIN CURRENTLY AT A 7 OUT OF 10 AND DESCRIBES IT ACHING, BURNING, SHARP, STABBING, THROBBING, AND SHOOTING. PATIENT WAS INJURED IN A WORK RELATED INJURY IN 08/29/2008 WHEN SHE WAS MOVING GARBAGE WHILE WORKING AT [employer] IN [place] INJURING HER BACK. PATIENT HAD BACK SURGERY IN MAY OF 2009 WITHOUT ANY IMPROVEMENT IN PAIN RELIEF. FALL RISK SCREENING: SCREENING :NO FALLS REPORTED IN THE LAST YEAR PAIN SCREENING: PATIENT HAS A COMPLAINT OF ACUTE OR CHRONIC PAIN :YES LOCATION OF PAIN:LOW BACK INTENSITY OF PAIN (SCALE OF 1 TO 10):7 WHAT DOES YOUR PAIN FEEL LIKE:ACHING, BURNING, SHARP, STABBING, THROBBING, SHOOTING DURATION:CONTINOUS, CONSTANT, ALL DAY PAIN IS INCREASED BY:ACTIVITIES PAIN IS DECREASED BY:USE OF PAIN MEDICATIONS HEATING PAD TREATMENT/MEDICATIONS USED TO MANAGE PAIN:OPIOIDS LEVEL OF RELIEF FROM PAIN TREATMENTS IN THE PAST:75% PAIN HAS INTERFERED WITH THE FOLLOWING:BATHING/DRESSING, WALKING ABILITY, SLEEP NURSING NOTE: -. PAIN CENTER INTAKE QUESTIONS: DO YOU HAVE A HISTORY OF MRSA? :NO DO YOU TAKE A BLOOD THINNERS? :NO DO YOU HAVE ANY BLEEDING DISORDERS? :NO ANY NEW NUMBNESS OR WEAKNESS IN YOUR LEGS OR ARMS? :NO ANY PACEMAKER,DEFIBRILLATOR, OR DORSAL COLUMN STIMULATOR? :NO DO YOU HAVE ANY RASHES OR OPEN SORES? :NO ARE YOU ALLERGIC TO IV DYE? :NO ARE YOU DIABETIC? :NO ANY NEW PROBLEMS WITH YOUR MEDICATIONS? :NO HAVE YOU RECEIVED A VACCINE IN THE PAST 30 DAYS? :NO DO YOU PLAN TO RECEIVE A VACCINE IN THE NEXT 21 DAYS? :NO DO YOU NEED ANY PRESCRIPTION? :NO DO YOU TAKE ANY IMMUNOSUPPRESSIVE MEDICATIONS? :NO IS THERE A CHANCE YOU COULD BE ? :NO ARE YOU BREAST FEEDING? :NO CURRENT MEDICATIONS TAKING HYDROCHLOROTHIAZIDE 12.5 MG CAPSULE 1 CAPSULE ORALLY ONCE A DAY TAKING LISINOPRIL 20 MG TABLET 1 TABLET ORALLY ONCE A DAY TAKING MULTI FOR HER - TABLET ORALLY DAILY TAKING STOOL SOFTENER 100 MG CAPSULE 1 CAPSULE NEEDED ORALLY BID NEEDED FOR CONSTIPATION TAKING FLONASE 50 MCG/ACT SUSPENSION 1 SPRAY IN EACH NOSTRIL NASALLY ONCE A DAY TAKING NORCO 10-325 MG TABLET 1 ORALLY Q4H PRN MDD6 #150 TAB SHOULD LAST 30 DAYS TAKING IBUPROFEN 800 MG TABLET 1 TABLET NEEDED FOR PAIN ORALLY WITH FOOD THREE TIMES A DAY MDD3 NOT-TAKING CYMBALTA 30 MG CAPSULE DELAYED RELEASE PARTICLES 1 CAPSULE ORALLY ONCE A DAY NOT-TAKING SERTRALINE HCL 25 MG TABLET 1 TABLET ORALLY ONCE A DAY NOT-TAKING BACLOFEN 10 MG TABLET 0.5 TABLET TID X 5 DAYS 1 TABLET WITH FOOD OR MILK ORALLY THREE TIMES A DAY NOT-TAKING SOMA 350 MG TABLET 1 TABLET NEEDED ORALLY FOR SPASMS AND PAIN POST PROCEDURE BID NOT-TAKING OXYCODONE HCL 5 MG TABLET 1 TABLET ORALLY DAILY FOR POST PROCEDUER PAIN MDD1 NOT-TAKING NAPROXEN 500 MG TABLET 1 TABLET NEEDED ORALLY EVERY 12 HRS NOT-TAKING ASPIR-81 81 MG TABLET DELAYED RELEASE 1 TABLET ORALLY ONCE A DAY MEDICATION LIST REVIEWED AND RECONCILED WITH THE PATIENT ALLERGIES NO[ALLERGIES VERIFIED] SOCIAL HISTORY GENERAL: TOBACCO USE ARE YOU A: NONSMOKER. LATEX QUESTIONNAIRE LATEX ALLERGY : HAVE YOU EVER DEVELOPED ANY TYPE OF REACTION AFTER HANDLING LATEX PRODUCTS SUCH RUBBER GLOVES, CONDOMS, DIAPHRAGMS, BALLOONS, SOCKS, OR UNDERWEAR?NO LATEX ALLERGY : HAVE YOU EVER DEVELOPED ANY TYPE OF REACTION DURING OR AFTER DENTAL APPOINTMENT, VAGINAL/RECTAL EXAMINATION, SURGICAL PROCEDURE, OR ANY OTHER EXPOSURE?NO LATEX RISK : HAVE YOU EVER HAD ANY DIFFICULTY BREATHING OR HIVES AFTER EATING OR HANDLING ANY FRUITS, OR VEGETABLES; SUCH KIWI, BANANAS, STONE FRUITS, OR CHESTNUTSNO LATEX RISK : DO YOU HAVE A PREVIOUS PERSONAL HISTORY OF MORE THAN NINE SURGERIES, SPINA BIFIDA, OR REPEATED CATHERIZATIONS? NO LATEX RISK : ARE YOU FREQUENTLY EXPOSED TO LATEX PRODUCTS IN YOUR OCCUPATION?NO DATE ASKED : 03/08/2020 ALCOHOL USE: NO. ALCOHOL SCREENING DID YOU HAVE A DRINK CONTAINING ALCOHOL IN THE PAST YEAR?NO POINTS0 INTERPRETATIONNEGATIVE RECREATIONAL DRUG USE DRUG USE?NO [employer]THODOXY [id number] JEWISH LANGUAGE LANGUAGES SPOKEN:MACEDONIAN EDUCATION LEVEL OF EDUCATION:NOT FINISHED HIGH SCHOOL GED LEARNING BARRIERS / SPECIAL NEEDS CHANGE FROM LAST VISIT?NO BARRIERS TO LEARNING?NO HEARING IMPAIRED?NO VISION IMPAIRED?NO COGNITIVELY IMPAIRED?NO READINESS TO LEARN?YES LEARNING PREFERENCES?NO LEARNING CAPABILITIES PRESENT?YES EMOTIONAL BARRIERS?NO SPECIAL DEVICES?NO CONSTRUCTION PROJECT ENGINEER NEEDED?NO DOMESTIC VIOLENCE DO YOU FEEL SAFE IN YOUR ENVIRONMENT?YES OCCUPATION: DISABILITY. TODAY'S VISITNOTES FROM 0-10, WHAT LEVEL IS YOUR PAIN TODAY?5 - PFS REFERRAL NEEDED?NO CLERGY REFERRAL NEEDED?NO PUBLIC HEALTH REFERRAL NEEDED?NO WAS THE PROVIDER NOTIFIED OF ANY PERTINENT INFO?YES N/A HAS THE PATIENT BEEN EDUCATED REGARDING HIS/HER PLAN OF CARE?YES HAS THE PATIENT BEEN EDUCATED REGARDING PAIN, THE RISK FOR PAIN, THE IMPORTANCE OF EFFECTIVE PAIN MANAGEMENT, AND THE PAIN ASSESSMENT PROCESS?YES ADVANCE DIRECTIVE ADVANCE DIRECTIVE DISCUSSED WITH PATIENT:YES PT DOES NOT HAVE ANY ADVANCED DIRECTIVES AND SHE DECLINES INFORMATION ON HCP AT THIS TIME. REVIEWED WITH PT 12/08/17 1512 BVREVIEWED WITH PATIENT 03/11/2019 DS. REVIEW OF SYSTEMS CONSTITUTIONAL: ANY RECENT FEVER NO . CHILLS NO . WEIGHT CHANGE OF UNKNOWN REASONS NO . GASTROENTEROLOGY: NEW UNEXPLAINABLE CHANGES IN BOWEL CONTROL NO . CONSTIPATION NO . GENITOURINARY: ANY NEW CHANGE IN BLADDER CONTROL? NO . NEUROLOGY: NEW ONSET DIZZINESS OR NEUROLOGICAL CHANGES NOT MENTIONED NO . NEW NUMBNESS OR PAIN PATTERNS NOT MENTIONED AND PERTINENT TO TODAY'S VISIT NO . CARDIOLOGY: NEW CHEST PRESSURE NO . NEW CHEST PAIN NO . RESPIRATORY: UNEXPLAINABLE COUGH NO . NEW SHORTNESS OF BREATH NO . VITAL SIGNS WT 157 LBS, HT 65 IN, BMI 26.12 INDEX, BP 130/60 MM HG, HR 78 /MIN, RR 18 /MIN, TEMP 97.6 F, OXYGEN SAT % 98%, SAFE IN ENV? (Y/N) YEST.CAM[employer] SHINE. EXAMINATION GENERAL EXAMINATION: GENERALNO ACUTE DISTRESS, WELL NOURISHED AND HYDRATED. PSYCHAPPROPRIATE MOOD AND AFFECT . LUNGS:CLEAR TO AUSCULTATION BILATERALLY, NO WHEEZES, RHONCHI, RALES. HEART:NO MURMURS, REGULAR RATE AND RHYTHM. ASSESSMENTS POST LAMINECTOMY SYNDROME - M96.1 (PRIMARY), RISK: (NULL) TREATMENT POST LAMINECTOMY SYNDROME NOTES: 49-YEAR-OLD FEMALE IN FOR WORKER'S COMP. CHRONIC PAIN FOLLOW-UP. GIVEN PRESENTING SYMPTOMS RECOMMENDED CONTINUATION OF CURRENT MEDICATION REGIMEN WITH FOLLOW-UP IN 3 MONTHS. PATIENT HAS EXPRESSED UNDERSTANDING OF AND WAS IN AGREEMENT WITH TREATMENT PLAN. GIVEN TIME TO ASK QUESTIONS AND EXPRESS CONCERNS. , ISTOP REGISTRY REVIEWED AND DEMONSTRATES COMPLLIANCE. (REF # [id number] ) BRINGS IN MEDICATIONS WHICH IS APPROPRIATE FOR WHAT WAS DISPENSED. RECENT URINE TOXICOLOGY REVIEWED. NO UNAUTHORIZED MEDICATIONS. NO ILLICIT SUBSTANCES AND PRESCRIBED MEDICATIONS WERE PRESENT. OTHERS REFILL NORCO TABLET, 10-325 MG, 1, ORALLY, Q4H PRN MDD6 #150 TAB SHOULD LAST 30 DAYS, 30 DAY(S), 150, REFILLS 0 PROCEDURES PN WORKMANS' COMP OPINION IN YOUR OPINION, WAS THE INCIDENT THAT THE PATIENT DESCRIBED THE COMPETENT MEDICAL CAUSE OF THIS INJURY/ILLNESS? YES ARE THE PATIENT'S COMPLAINTS CONSISTENT WITH HIS/HER HISTORY OF THE INJURY/ILLNESS? YES IS THE PATIENT'S HISTORY OF THE INJURY/ILLNESS CONSISTENT WITH YOUR OBJECTIVE FINDING? YES WHAT IS THE PERCENTAGE OF TEMPORARY IMPAIRMENT? MODERATE TO MARKED = 66.7% IS THE PATIENT WORKING? NO DOCTOR ON SITE: MILENA SPEARS MD PROCEDURE CODES FA211 ESTABILISHED PATIENT [facility] CHARGE DISPOSITION & COMMUNICATION FOLLOW UP 3 MONTHS (REASON: BACK PAIN ) ELECTRONICALLY SIGNED BY LUCIANO ATKINSON ON 03/12/2020 AT 09:21 AM EST DISCLAIMER : THIS IS A VISIT SUMMARY EXTRACTED FROM THE [facility] CHART. IT IS NOT A COPY OF THE [employer] [facility] PROGRESS NOTE. NELSON
== END ==
LOC: M PAIN 14:30
PROVIDERS: ATTEND Family Medicine
DX: M96.1 Postlaminectomy syndrome, not elsewhere classified (principal); Z79.891 Long term (current) use of opiate analgesic; Z79.1 Long term (current) use of non-steroidal anti-inflammatories (NSAID); Z79.899 Other long term (current) drug therapy

== ENCOUNTER → 2020-06-21 | Outpatient (CLI) | payer OTHER ==
--- NOTE | 2020-06-23 00:19 | ECWPNPC ---
PATIENT NAME: DAFNE LOVE : 1970 GENDER: FEMALE VISIT DATE: 06/21/2020 DISCHARGE DATE: 06/21/20 1423 VISIT LOCKED DATE TIME: PHYSICIAN: LIZANDRO GONZALEZ PHYSICIAN PAGER NO: ACTIVE RESOURCE: LIZANDRO GONZALEZ REASON FOR APPOINTMENT 1. BACK PAIN HISTORY OF PRESENT ILLNESS DEPRESSION SCREENIN-YEAR-OLD FEMALE IN FOR WORKER'S COMP. CHRONIC PAIN FOLLOW-UP. SHE RATES HER PAIN CURRENTLY AT A 5 OUT OF 10. SHE FEELS HER MEDICATIONS ARE HELPFUL AND DENIES MED SIDE EFFECTS AT THIS TIME. MEDICATION EFFICACY EVIDENCED BY DECREASED PAIN AND INCREASED FUNCTIONAL. DOI: 08/29/2008. PHQ-2 (2015 EDITION) LITTLE INTEREST OR PLEASURE IN DOING THINGS?NOT AT ALL FEELING DOWN, DEPRESSED, OR HOPELESS?NOT AT ALL TOTAL SCORE0 GENERAL: -. FALL RISK SCREENING: SCREENING : NO FALLS REPORTED IN THE LAST YEAR. PAIN SCREENING: PATIENT HAS A COMPLAINT OF ACUTE OR CHRONIC PAIN :YES LOCATION OF PAIN:LOW BACK INTENSITY OF PAIN (SCALE OF 1 TO 10):5 WHAT DOES YOUR PAIN FEEL LIKE:ACHING, BURNING, CONTINOUS, INTERMITTENT, SHARP, STABBING, TENDER, THROBBING, SORE, SHOOTING, OTHER CONTINUOUS WITH A DULL ACHE DURATION:CONTINOUS, CONSTANT, STEADY, AWAKENS FROM SLEEP PAIN IS INCREASED BY:ACTIVITIES, PROLONGED STANDING PAIN IS DECREASED BY:USE OF PAIN MEDICATIONS, SITTING, OTHERS HEAT, MOVEMENT NURSING NOTE: -. PAIN CENTER INTAKE QUESTIONS: DO YOU HAVE A HISTORY OF MRSA? :NO DO YOU TAKE A BLOOD THINNERS? :NO DO YOU HAVE ANY BLEEDING DISORDERS? :NO ANY NEW NUMBNESS OR WEAKNESS IN YOUR LEGS OR ARMS? :NO ANY PACEMAKER,DEFIBRILLATOR, OR DORSAL COLUMN STIMULATOR? :NO DO YOU HAVE ANY RASHES OR OPEN SORES? :NO ARE YOU ALLERGIC TO IV DYE? :NO ARE YOU DIABETIC? :NO ANY NEW PROBLEMS WITH YOUR MEDICATIONS? :NO HAVE YOU RECEIVED A VACCINE IN THE PAST 30 DAYS? :NO DO YOU PLAN TO RECEIVE A VACCINE IN THE NEXT 21 DAYS? :NO DO YOU NEED ANY PRESCRIPTION? :NO DO YOU TAKE ANY IMMUNOSUPPRESSIVE MEDICATIONS? :NO IS THERE A CHANCE YOU COULD BE ? :NO ARE YOU BREAST FEEDING? :NO CURRENT MEDICATIONS TAKING HYDROCHLOROTHIAZIDE 12.5 MG CAPSULE 1 CAPSULE ORALLY ONCE A DAY TAKING LISINOPRIL 20 MG TABLET 1 TABLET ORALLY ONCE A DAY TAKING MULTI FOR HER - TABLET ORALLY DAILY TAKING STOOL SOFTENER 100 MG CAPSULE 1 CAPSULE NEEDED ORALLY BID NEEDED FOR CONSTIPATION TAKING FLONASE 50 MCG/ACT SUSPENSION 1 SPRAY IN EACH NOSTRIL NASALLY ONCE A DAY TAKING IBUPROFEN 800 MG TABLET 1 TABLET NEEDED FOR PAIN ORALLY WITH FOOD THREE TIMES A DAY MDD3 TAKING HYDROCODONE-ACETAMINOPHEN 10-325 MG TABLET 1 TABLET NEEDED ORALLY Q4H PRN MDD5 NOT-TAKING NORCO 10-325 MG TABLET 1 ORALLY Q4H PRN MDD6 #150 TAB SHOULD LAST 30 DAYS NOT-TAKING CYMBALTA 30 MG CAPSULE DELAYED RELEASE PARTICLES 1 CAPSULE ORALLY ONCE A DAY NOT-TAKING SERTRALINE HCL 25 MG TABLET 1 TABLET ORALLY ONCE A DAY NOT-TAKING BACLOFEN 10 MG TABLET 0.5 TABLET TID X 5 DAYS 1 TABLET WITH FOOD OR MILK ORALLY THREE TIMES A DAY NOT-TAKING SOMA 350 MG TABLET 1 TABLET NEEDED ORALLY FOR SPASMS AND PAIN POST PROCEDURE BID NOT-TAKING OXYCODONE HCL 5 MG TABLET 1 TABLET ORALLY DAILY FOR POST PROCEDUER PAIN MDD1 NOT-TAKING NAPROXEN 500 MG TABLET 1 TABLET NEEDED ORALLY EVERY 12 HRS NOT-TAKING ASPIR-81 81 MG TABLET DELAYED RELEASE 1 TABLET ORALLY ONCE A DAY MEDICATION LIST REVIEWED AND RECONCILED WITH THE PATIENT PAST MEDICAL HISTORY HTN ANXIETY FLUID RETENTION TO LEGS AND ANKLES BACK PAIN/POST LAMINECTOMY SYNDROME ALLERGIES LYRICA: INCREASED ANXIETY - SIDE EFFECTS BEE STINGS: SEVERE SWELLING, HOT, ITCHY AND ACHY - ALLERGY TAPE ADHESIVE: REDNESS - ALLERGY SOCIAL HISTORY GENERAL: TOBACCO USE ARE YOU A: NONSMOKER. LATEX QUESTIONNAIRE LATEX ALLERGY : HAVE YOU EVER DEVELOPED ANY TYPE OF REACTION AFTER HANDLING LATEX PRODUCTS SUCH RUBBER GLOVES, CONDOMS, DIAPHRAGMS, BALLOONS, SOCKS, OR UNDERWEAR?NO LATEX ALLERGY : HAVE YOU EVER DEVELOPED ANY TYPE OF REACTION DURING OR AFTER DENTAL APPOINTMENT, VAGINAL/RECTAL EXAMINATION, SURGICAL PROCEDURE, OR ANY OTHER EXPOSURE?NO LATEX RISK : HAVE YOU EVER HAD ANY DIFFICULTY BREATHING OR HIVES AFTER EATING OR HANDLING ANY FRUITS, OR VEGETABLES; SUCH KIWI, BANANAS, STONE FRUITS, OR CHESTNUTSNO LATEX RISK : DO YOU HAVE A PREVIOUS PERSONAL HISTORY OF MORE THAN NINE SURGERIES, SPINA BIFIDA, OR REPEATED CATHERIZATIONS? NO LATEX RISK : ARE YOU FREQUENTLY EXPOSED TO LATEX PRODUCTS IN YOUR OCCUPATION?NO DATE ASKED : 06/21/2020 ALCOHOL USE: NO. ALCOHOL SCREENING DID YOU HAVE A DRINK CONTAINING ALCOHOL IN THE PAST YEAR?NO POINTS0 INTERPRETATIONNEGATIVE RECREATIONAL DRUG USE DRUG USE?NO [id number] BUD[employer]IST LANGUAGE LANGUAGES SPOKEN:[place] LEONEAN EDUCATION LEVEL OF EDUCATION:NOT FINISHED HIGH SCHOOL GED LEARNING BARRIERS / SPECIAL NEEDS CHANGE FROM LAST VISIT?NO BARRIERS TO LEARNING?NO HEARING IMPAIRED?NO VISION IMPAIRED?YES :CORRECTIVE LENSES NEEDED COGNITIVELY IMPAIRED?NO READINESS TO LEARN?YES LEARNING PREFERENCES?NO LEARNING CAPABILITIES PRESENT?YES EMOTIONAL BARRIERS?NO SPECIAL DEVICES?NO PHOTOGRAPHER APPRENTICE LITHOGRAPHIC NEEDED?NO DOMESTIC VIOLENCE DO YOU FEEL SAFE IN YOUR ENVIRONMENT?YES OCCUPATION: DISABILITY. TODAY'S VISITNOTES FROM 0-10, WHAT LEVEL IS YOUR PAIN TODAY?5 - PFS REFERRAL NEEDED?NO CLERGY REFERRAL NEEDED?NO PUBLIC HEALTH REFERRAL NEEDED?NO WAS THE PROVIDER NOTIFIED OF ANY PERTINENT INFO?YES N/A HAS THE PATIENT BEEN EDUCATED REGARDING HIS/HER PLAN OF CARE?YES HAS THE PATIENT BEEN EDUCATED REGARDING PAIN, THE RISK FOR PAIN, THE IMPORTANCE OF EFFECTIVE PAIN MANAGEMENT, AND THE PAIN ASSESSMENT PROCESS?YES ADVANCE DIRECTIVE ADVANCE DIRECTIVE DISCUSSED WITH PATIENT:YES PT DOES NOT HAVE ANY ADVANCED DIRECTIVES AND SHE DECLINES INFORMATION ON HCP AT THIS TIME. REVIEWED WITH PT 12/08/17 1512 BVREVIEWED WITH PATIENT 03/11/2019 DS. REVIEW OF SYSTEMS CONSTITUTIONAL: ANY RECENT FEVER NO . CHILLS NO . WEIGHT CHANGE OF UNKNOWN REASONS NO . GASTROENTEROLOGY: NEW UNEXPLAINABLE CHANGES IN BOWEL CONTROL NO . CONSTIPATION NO . GENITOURINARY: ANY NEW CHANGE IN BLADDER CONTROL? NO . NEUROLOGY: NEW ONSET DIZZINESS OR NEUROLOGICAL CHANGES NOT MENTIONED NO . NEW NUMBNESS OR PAIN PATTERNS NOT MENTIONED AND PERTINENT TO TODAY'S VISIT NO . CARDIOLOGY: NEW CHEST PRESSURE NO . PATIENT DENIES NO . RESPIRATORY: UNEXPLAINABLE COUGH NO . NEW SHORTNESS OF BREATH NO . VITAL SIGNS WT 155.8 LBS, HT 65 IN, BMI 25.92 INDEX, BP 147/67 MM HG, HR 77 /MIN, RR 18 /MIN, TEMP 97.2 F, OXYGEN SAT % 98%, SAFE IN ENV? (Y/N) YES, NA INITIALS NV 13:51, REVIEWED BY: SNOW VASQUEZ MA. EXAMINATION GENERAL EXAMINATION: GENERALNO ACUTE DISTRESS, WELL NOURISHED AND HYDRATED. PSYCHAPPROPRIATE MOOD AND AFFECT . LUNGS:CLEAR TO AUSCULTATION BILATERALLY, NO WHEEZES, RHONCHI, RALES. HEART:NO MURMURS, REGULAR RATE AND RHYTHM. ASSESSMENTS INTERVERTEBRAL DISC DISORDERS WITH RADICULOPATHY, LUMBOSACRAL REGION - M51.17 (PRIMARY) CHRONIC PRESCRIPTION OPIATE USE - Z79.891 TREATMENT INTERVERTEBRAL DISC DISORDERS WITH RADICULOPATHY, LUMBOSACRAL REGION LAB: URINE TEST GROUP NAVEED VASQUEZ 06/21/2020 2:25:25 PM > LAST DOSE: HYDROCODONE 06/21/2020 AT 0100 NOTES: 50-YEAR-OLD FEMALE IN FOR WORKER'S COMP. CHRONIC PAIN FOLLOW-UP. GIVEN PRESENTING SYMPTOMS RECOMMENDED CONTINUATION OF CURRENT MEDICATION REGIMEN WITH FOLLOW-UP IN 3 MONTHS. PATIENT HAS EXPRESSED UNDERSTANDING OF AND WAS IN AGREEMENT WITH TREATMENT PLAN. GIVEN TIME TO ASK QUESTIONS AND EXPRESS CONCERNS. ISTOP REGISTRY REVIEWED AND DEMONSTRATES COMPLLIANCE. (REF #[id number] ) BRINGS IN MEDICATIONS WHICH IS APPROPRIATE FOR WHAT WAS DISPENSED. RECENT URINE TOXICOLOGY REVIEWED. NO UNAUTHORIZED MEDICATIONS. NO ILLICIT SUBSTANCES AND PRESCRIBED MEDICATIONS WERE PRESENT. PROCEDURES PN WORKMANS' COMP OPINION IN YOUR OPINION, WAS THE INCIDENT THAT THE PATIENT DESCRIBED THE COMPETENT MEDICAL CAUSE OF THIS INJURY/ILLNESS? YES ARE THE PATIENT'S COMPLAINTS CONSISTENT WITH HIS/HER HISTORY OF THE INJURY/ILLNESS? YES IS THE PATIENT'S HISTORY OF THE INJURY/ILLNESS CONSISTENT WITH YOUR OBJECTIVE FINDING? YES WHAT IS THE PERCENTAGE OF TEMPORARY IMPAIRMENT? MODERATE TO MARKED = 66.7% IS THE PATIENT WORKING? NO DOCTOR ON SITE: MILENA SPEARS MD PROCEDURE CODES FA211 ESTABILISHED PATIENT [facility] FACILITY CHARGE DISPOSITION & COMMUNICATION FOLLOW UP 3 MONTHS (REASON: BACK PAIN W/C) ELECTRONICALLY SIGNED BY LUCIANO ATKINSON ON 06/22/2020 AT 01:31 PM EDT DISCLAIMER : THIS IS A VISIT SUMMARY EXTRACTED FROM THE [employer] CHART. IT IS NOT A COPY OF THE [employer] PROGRESS NOTE. NELSON
== END ==
LOC: M PAIN 13:30
PROVIDERS: ATTEND Family Medicine
DX: M51.17 Intervertebral disc disorders with radiculopathy, lumbosacral region (principal); I10 Essential (primary) hypertension; F41.9 Anxiety disorder, unspecified; M96.1 Postlaminectomy syndrome, not elsewhere classified; Z79.891 Long term (current) use of opiate analgesic; Z79.899 Other long term (current) drug therapy; Z88.8 Allergy status to other drugs, medicaments and biological substances; Z91.030 Bee allergy status; Z91.048 Other nonmedicinal substance allergy status

== ENCOUNTER → 2020-09-21 | Outpatient (CLI) | payer OTHER ==
--- NOTE | 2020-09-22 04:12 | ECWPNPC ---
PATIENT NAME: DAFNE LOVE : 1970 GENDER: FEMALE VISIT DATE: 09/21/2020 DISCHARGE DATE: 09/21/20 1015 VISIT LOCKED DATE TIME: PHYSICIAN: LIZANDRO GONZALEZ PHYSICIAN PAGER NO: ACTIVE RESOURCE: LIZANDRO GONZALEZ REASON FOR APPOINTMENT 1. BACK PAIN W/C HISTORY OF PRESENT ILLNESS GENERAL: HPI 50-YEAR-OLD FEMALE IN FOR WORKER'S COMP. CHRONIC PAIN FOLLOW-UP. PATIENT RATES HER PAIN CURRENTLY AT A 7 OUT OF 10 DESCRIBES IT ACHING, STABBING, AND SHOOTING. PATIENT FEELS HER MEDICATIONS ARE HELPFUL AND DENIES MED SIDE EFFECTS AT THIS TIME.DOI 08/29/2008. -. FALL RISK SCREENING: SCREENING : NO FALLS REPORTED IN THE LAST YEAR. PAIN SCREENING: PATIENT HAS A COMPLAINT OF ACUTE OR CHRONIC PAIN :YES LOCATION OF PAIN:LOW BACK INTENSITY OF PAIN (SCALE OF 1 TO 10):7 WHAT DOES YOUR PAIN FEEL LIKE:ACHING, STABBING, SHOOTING DURATION:ONLY WITH SPECIFIC ACTIVITIES PAIN IS INCREASED BY:PROLONGED STANDING PROLONGED SITTING PAIN IS DECREASED BY:OTHERS REPOSITIONING NURSING NOTE: -. PAIN CENTER INTAKE QUESTIONS: DO YOU HAVE A HISTORY OF MRSA? :NO DO YOU TAKE A BLOOD THINNERS? :NO DO YOU HAVE ANY BLEEDING DISORDERS? :NO ANY NEW NUMBNESS OR WEAKNESS IN YOUR LEGS OR ARMS? :NO ANY PACEMAKER,DEFIBRILLATOR, OR DORSAL COLUMN STIMULATOR? :NO DO YOU HAVE ANY RASHES OR OPEN SORES? :NO ARE YOU ALLERGIC TO IV DYE? :NO ARE YOU DIABETIC? :NO ANY NEW PROBLEMS WITH YOUR MEDICATIONS? :NO HAVE YOU RECEIVED A VACCINE IN THE PAST 30 DAYS? :NO DO YOU PLAN TO RECEIVE A VACCINE IN THE NEXT 21 DAYS? :NO DO YOU NEED ANY PRESCRIPTION? :NO DO YOU TAKE ANY IMMUNOSUPPRESSIVE MEDICATIONS? :NO IS THERE A CHANCE YOU COULD BE ? :NO ARE YOU BREAST FEEDING? :NO CURRENT MEDICATIONS TAKING HYDROCHLOROTHIAZIDE 12.5 MG CAPSULE 1 CAPSULE ORALLY ONCE A DAY TAKING LISINOPRIL 20 MG TABLET 1 TABLET ORALLY ONCE A DAY TAKING FLONASE 50 MCG/ACT SUSPENSION 1 SPRAY IN EACH NOSTRIL NASALLY ONCE A DAY TAKING IBUPROFEN 800 MG TABLET 1 TABLET NEEDED FOR PAIN ORALLY WITH FOOD THREE TIMES A DAY MDD3 TAKING HYDROCODONE-ACETAMINOPHEN 10-325 MG TABLET 1 TABLET NEEDED ORALLY Q4H PRN MDD5 NOT-TAKING MULTI FOR HER - TABLET ORALLY DAILY NOT-TAKING STOOL SOFTENER 100 MG CAPSULE 1 CAPSULE NEEDED ORALLY BID NEEDED FOR CONSTIPATION NOT-TAKING NORCO 10-325 MG TABLET 1 ORALLY Q4H PRN MDD6 #150 TAB SHOULD LAST 30 DAYS NOT-TAKING CYMBALTA 30 MG CAPSULE DELAYED RELEASE PARTICLES 1 CAPSULE ORALLY ONCE A DAY NOT-TAKING SERTRALINE HCL 25 MG TABLET 1 TABLET ORALLY ONCE A DAY NOT-TAKING BACLOFEN 10 MG TABLET 0.5 TABLET TID X 5 DAYS 1 TABLET WITH FOOD OR MILK ORALLY THREE TIMES A DAY NOT-TAKING SOMA 350 MG TABLET 1 TABLET NEEDED ORALLY FOR SPASMS AND PAIN POST PROCEDURE BID NOT-TAKING OXYCODONE HCL 5 MG TABLET 1 TABLET ORALLY DAILY FOR POST PROCEDUER PAIN MDD1 NOT-TAKING NAPROXEN 500 MG TABLET 1 TABLET NEEDED ORALLY EVERY 12 HRS NOT-TAKING ASPIR-81 81 MG TABLET DELAYED RELEASE 1 TABLET ORALLY ONCE A DAY MEDICATION LIST REVIEWED AND RECONCILED WITH THE PATIENT PAST MEDICAL HISTORY HTN ANXIETY FLUID RETENTION TO LEGS AND ANKLES BACK PAIN/POST LAMINECTOMY SYNDROME ALLERGIES LYRICA: INCREASED ANXIETY - SIDE EFFECTS BEE STINGS: SEVERE SWELLING, HOT, ITCHY AND ACHY - ALLERGY TAPE ADHESIVE: REDNESS - ALLERGY SOCIAL HISTORY GENERAL: TOBACCO USE ARE YOU A: NONSMOKER. LATEX QUESTIONNAIRE LATEX ALLERGY : HAVE YOU EVER DEVELOPED ANY TYPE OF REACTION AFTER HANDLING LATEX PRODUCTS SUCH RUBBER GLOVES, CONDOMS, DIAPHRAGMS, BALLOONS, SOCKS, OR UNDERWEAR?NO LATEX ALLERGY : HAVE YOU EVER DEVELOPED ANY TYPE OF REACTION DURING OR AFTER DENTAL APPOINTMENT, VAGINAL/RECTAL EXAMINATION, SURGICAL PROCEDURE, OR ANY OTHER EXPOSURE?NO LATEX RISK : HAVE YOU EVER HAD ANY DIFFICULTY BREATHING OR HIVES AFTER EATING OR HANDLING ANY FRUITS, OR VEGETABLES; SUCH KIWI, BANANAS, STONE FRUITS, OR CHESTNUTSNO LATEX RISK : DO YOU HAVE A PREVIOUS PERSONAL HISTORY OF MORE THAN NINE SURGERIES, SPINA BIFIDA, OR REPEATED CATHERIZATIONS? NO LATEX RISK : ARE YOU FREQUENTLY EXPOSED TO LATEX PRODUCTS IN YOUR OCCUPATION?NO DATE ASKED : 06/21/2020 ALCOHOL USE: NO. ALCOHOL SCREENING DID YOU HAVE A DRINK CONTAINING ALCOHOL IN THE PAST YEAR?NO POINTS0 INTERPRETATIONNEGATIVE RECREATIONAL DRUG USE DRUG USE?NO J[employer]ISH [id number] RESTORATIONISM LANGUAGE LANGUAGES SPOKEN:ITALIAN EDUCATION LEVEL OF EDUCATION:NOT FINISHED HIGH SCHOOL GED LEARNING BARRIERS / SPECIAL NEEDS CHANGE FROM LAST VISIT?NO BARRIERS TO LEARNING?NO HEARING IMPAIRED?NO VISION IMPAIRED?YES :CORRECTIVE LENSES NEEDED COGNITIVELY IMPAIRED?NO READINESS TO LEARN?YES LEARNING PREFERENCES?NO LEARNING CAPABILITIES PRESENT?YES EMOTIONAL BARRIERS?NO SPECIAL DEVICES?NO APPRAISAL SPECIALIST NEEDED?NO DOMESTIC VIOLENCE DO YOU FEEL SAFE IN YOUR ENVIRONMENT?YES OCCUPATION: DISABILITY. TODAY'S VISITNOTES FROM 0-10, WHAT LEVEL IS YOUR PAIN TODAY?5 - PFS REFERRAL NEEDED?NO CLERGY REFERRAL NEEDED?NO PUBLIC HEALTH REFERRAL NEEDED?NO WAS THE PROVIDER NOTIFIED OF ANY PERTINENT INFO?YES N/A HAS THE PATIENT BEEN EDUCATED REGARDING HIS/HER PLAN OF CARE?YES HAS THE PATIENT BEEN EDUCATED REGARDING PAIN, THE RISK FOR PAIN, THE IMPORTANCE OF EFFECTIVE PAIN MANAGEMENT, AND THE PAIN ASSESSMENT PROCESS?YES ADVANCE DIRECTIVE ADVANCE DIRECTIVE DISCUSSED WITH PATIENT:YES PT DOES NOT HAVE ANY ADVANCED DIRECTIVES AND SHE DECLINES INFORMATION ON HCP AT THIS TIME. REVIEWED WITH PT 12/08/17 1510 BVREVIEWED WITH PATIENT 03/11/2019 DS. REVIEW OF SYSTEMS CONSTITUTIONAL: ANY RECENT FEVER NO . CHILLS NO . WEIGHT CHANGE OF UNKNOWN REASONS NO . GASTROENTEROLOGY: NEW UNEXPLAINABLE CHANGES IN BOWEL CONTROL NO . CONSTIPATION NO . GENITOURINARY: ANY NEW CHANGE IN BLADDER CONTROL? NO . NEUROLOGY: NEW ONSET DIZZINESS OR NEUROLOGICAL CHANGES NOT MENTIONED NO . NEW NUMBNESS OR PAIN PATTERNS NOT MENTIONED AND PERTINENT TO TODAY'S VISIT NO . CARDIOLOGY: NEW CHEST PRESSURE NO . PATIENT DENIES NO . RESPIRATORY: UNEXPLAINABLE COUGH NO . NEW SHORTNESS OF BREATH NO . VITAL SIGNS WT 136.8 LBS, WT-KG 62.05 KG, HT 65 IN, BMI 22.76 INDEX, BP 160/77 MM HG, HR 82 /MIN, RR 18 /MIN, TEMP 98.2 F, OXYGEN SAT % 97%, SAFE IN ENV? (Y/N) YES, NA INITIALS AW 0949, REVIEWED BY: [facility]. FRANNY RN. EXAMINATION GENERAL EXAMINATION: GENERALNO ACUTE DISTRESS, WELL NOURISHED AND HYDRATED. PSYCHAPPROPRIATE MOOD AND AFFECT . LUNGS:CLEAR TO AUSCULTATION BILATERALLY, NO WHEEZES, RHONCHI, RALES. HEART:NO MURMURS, REGULAR RATE AND RHYTHM. ASSESSMENTS POST LAMINECTOMY SYNDROME - M96.1 (PRIMARY) TREATMENT POST LAMINECTOMY SYNDROME NOTES: 50-YEAR-OLD FEMALE IN FOR WORKER'S COMP. CHRONIC PAIN FOLLOW-UP. GIVEN PRESENTING SYMPTOMS RECOMMEND CONTINUATION OF CURRENT MEDICATION REGIMEN WITH FOLLOW-UP IN 3 MONTHS. PATIENT HAS EXPRESSED UNDERSTANDING OF AND WAS IN AGREEMENT WITH TREATMENT PLAN. GIVEN TIME TO ASK QUESTIONS AND EXPRESS CONCERNS. ISTOP REGISTRY REVIEWED AND DEMONSTRATES COMPLLIANCE. (REF # [id number] ) BRINGS IN MEDICATIONS WHICH IS APPROPRIATE FOR WHAT WAS DISPENSED. RECENT URINE TOXICOLOGY REVIEWED. NO UNAUTHORIZED MEDICATIONS. NO ILLICIT SUBSTANCES AND PRESCRIBED MEDICATIONS WERE PRESENT. PROCEDURES PN WORKMANS' COMP OPINION IN YOUR OPINION, WAS THE INCIDENT THAT THE PATIENT DESCRIBED THE COMPETENT MEDICAL CAUSE OF THIS INJURY/ILLNESS? YES ARE THE PATIENT'S COMPLAINTS CONSISTENT WITH HIS/HER HISTORY OF THE INJURY/ILLNESS? YES IS THE PATIENT'S HISTORY OF THE INJURY/ILLNESS CONSISTENT WITH YOUR OBJECTIVE FINDING? YES WHAT IS THE PERCENTAGE OF TEMPORARY IMPAIRMENT? MODERATE TO MARKED = 66.7% IS THE PATIENT WORKING? NO DOCTOR ON SITE: MILENA SPEARS MD VISIT CODES [id number] OFFICE VISIT, EST PT., LEVEL 3. PROCEDURE CODES FA211 ESTABILISHED PATIENT [facility] FACILITY CHARGE DISPOSITION & COMMUNICATION FOLLOW UP 3 MONTHS (REASON: BACK PAIN ) ELECTRONICALLY SIGNED BY LUCIANO ATKINSON ON 09/21/2020 AT 10:40 AM EDT DISCLAIMER : THIS IS A VISIT SUMMARY EXTRACTED FROM THE [employer] CHART. IT IS NOT A COPY OF THE [employer] PROGRESS NOTE. NELSON
== END ==
LOC: M PAIN 09:45
PROVIDERS: ATTEND Family Medicine
DX: M96.1 Postlaminectomy syndrome, not elsewhere classified (principal); I10 Essential (primary) hypertension; F41.9 Anxiety disorder, unspecified; Z79.891 Long term (current) use of opiate analgesic; Z79.82 Long term (current) use of aspirin; Z79.899 Other long term (current) drug therapy; Z88.8 Allergy status to other drugs, medicaments and biological substances; Z91.030 Bee allergy status; Z91.048 Other nonmedicinal substance allergy status

== ENCOUNTER → 2021-01-31 | Outpatient (CLI) | payer OTHER | LOC: M PAIN 10:45 | PROVIDERS: ATTEND Anesthesiology | DX: M96.1 Postlaminectomy syndrome, not elsewhere classified (principal); I10 Essential (primary) hypertension; F41.9 Anxiety disorder, unspecified; Z79.891 Long term (current) use of opiate analgesic; Z79.899 Other long term (current) drug therapy; Z88.8 Allergy status to other drugs, medicaments and biological substances; Z91.030 Bee allergy status; Z91.048 Other nonmedicinal substance allergy status ==

== ENCOUNTER → 2021-04-23 | Outpatient (CLI) | payer OTHER | LOC: M PAIN 09:30 | PROVIDERS: ATTEND Nurse Practitioner Family | DX: M96.1 Postlaminectomy syndrome, not elsewhere classified (principal); I10 Essential (primary) hypertension; F41.9 Anxiety disorder, unspecified; Z79.899 Other long term (current) drug therapy; Z88.8 Allergy status to other drugs, medicaments and biological substances; Z91.030 Bee allergy status; Z91.048 Other nonmedicinal substance allergy status ==

== ENCOUNTER → 2021-09-12 | Outpatient (CLI) | payer OTHER | LOC: M PAIN 11:15 | PROVIDERS: ATTEND Nurse Practitioner Family | DX: M96.1 Postlaminectomy syndrome, not elsewhere classified (principal); Z79.891 Long term (current) use of opiate analgesic; I10 Essential (primary) hypertension; F41.9 Anxiety disorder, unspecified; Z79.899 Other long term (current) drug therapy; Z88.8 Allergy status to other drugs, medicaments and biological substances; Z91.030 Bee allergy status; Z91.048 Other nonmedicinal substance allergy status ==

== ENCOUNTER → 2021-12-17 | Outpatient (CLI) | payer OTHER | LOC: M PAIN 10:15 | PROVIDERS: ATTEND Nurse Practitioner Family | DX: M96.1 Postlaminectomy syndrome, not elsewhere classified (principal); I10 Essential (primary) hypertension; F41.9 Anxiety disorder, unspecified; R60.0 Localized edema; Z79.891 Long term (current) use of opiate analgesic; Z79.899 Other long term (current) drug therapy; Z88.8 Allergy status to other drugs, medicaments and biological substances; Z91.030 Bee allergy status; Z91.048 Other nonmedicinal substance allergy status ==

== ENCOUNTER → 2022-02-14 | Outpatient (CLI) | payer OTHER | LOC: M PAIN 08:45 | PROVIDERS: ATTEND Nurse Practitioner Family | DX: M96.1 Postlaminectomy syndrome, not elsewhere classified (principal); G89.29 Other chronic pain; I10 Essential (primary) hypertension; Z86.59 Personal history of other mental and behavioral disorders; Z88.8 Allergy status to other drugs, medicaments and biological substances; Z91.030 Bee allergy status; Z91.09 Other allergy status, other than to drugs and biological substances; Z79.899 Other long term (current) drug therapy ==

== ENCOUNTER → 2022-04-08 | Outpatient (CLI) | payer OTHER | LOC: M PAIN 10:45 | PROVIDERS: ATTEND Nurse Practitioner Family | DX: M96.1 Postlaminectomy syndrome, not elsewhere classified (principal); Z79.891 Long term (current) use of opiate analgesic; Z79.899 Other long term (current) drug therapy ==

== ENCOUNTER → 2022-06-17 | Outpatient (CLI) | payer OTHER | LOC: M PAIN 10:45 | PROVIDERS: ATTEND Nurse Practitioner Family | DX: M96.1 Postlaminectomy syndrome, not elsewhere classified (principal); Z79.891 Long term (current) use of opiate analgesic; Z79.899 Other long term (current) drug therapy ==

== ENCOUNTER → 2022-09-01 | Outpatient (CLI) | payer OTHER | LOC: M PAIN 09:30 | PROVIDERS: ATTEND Nurse Practitioner Family | DX: M96.1 Postlaminectomy syndrome, not elsewhere classified (principal); G89.29 Other chronic pain; M54.50 Low back pain, unspecified; Z79.891 Long term (current) use of opiate analgesic; Z79.899 Other long term (current) drug therapy ==

== ENCOUNTER → 2022-11-10 | Outpatient (CLI) | payer OTHER | LOC: M PAIN 10:15 | PROVIDERS: ATTEND Nurse Practitioner Family | DX: M96.1 Postlaminectomy syndrome, not elsewhere classified (principal); Z79.891 Long term (current) use of opiate analgesic; Z79.899 Other long term (current) drug therapy ==

== ENCOUNTER → 2023-03-09 | Outpatient (CLI) | payer OTHER | LOC: M PAIN 11:00 | PROVIDERS: ATTEND Nurse Practitioner Family | DX: M96.1 Postlaminectomy syndrome, not elsewhere classified (principal); G89.29 Other chronic pain; Z79.891 Long term (current) use of opiate analgesic; Z79.899 Other long term (current) drug therapy ==

== ENCOUNTER → 2023-05-08 | Outpatient (CLI) | payer OTHER | LOC: M PAIN 09:15 | PROVIDERS: ATTEND Nurse Practitioner Family | DX: M96.1 Postlaminectomy syndrome, not elsewhere classified (principal); Z79.891 Long term (current) use of opiate analgesic; G89.29 Other chronic pain; Z79.899 Other long term (current) drug therapy ==

== ENCOUNTER → 2023-08-07 | Outpatient (CLI) | payer OTHER | LOC: M PAIN 09:00 | PROVIDERS: ATTEND Nurse Practitioner Family | DX: M96.1 Postlaminectomy syndrome, not elsewhere classified (principal); Z79.891 Long term (current) use of opiate analgesic; Z79.1 Long term (current) use of non-steroidal anti-inflammatories (NSAID); Z88.5 Allergy status to narcotic agent ==

== ENCOUNTER → 2023-12-01 | Outpatient (CLI) | payer OTHER | LOC: M PAIN 09:00 | PROVIDERS: ATTEND Nurse Practitioner Family | DX: M96.1 Postlaminectomy syndrome, not elsewhere classified (principal); G89.29 Other chronic pain; Z79.891 Long term (current) use of opiate analgesic; M54.16 Radiculopathy, lumbar region; I10 Essential (primary) hypertension; Z79.899 Other long term (current) drug therapy; Z91.030 Bee allergy status ==

== ENCOUNTER → 2024-04-04 | Outpatient (CLI) | payer OTHER | LOC: M PAIN 15:00 → M TMPAIN 15:00 | PROVIDERS: ATTEND Nurse Practitioner Family | DX: M96.1 Postlaminectomy syndrome, not elsewhere classified (principal); M54.16 Radiculopathy, lumbar region; I10 Essential (primary) hypertension; G89.29 Other chronic pain; Z79.891 Long term (current) use of opiate analgesic; Z79.899 Other long term (current) drug therapy; Z91.030 Bee allergy status ==